=== PATIENT | male | born 1955 | race Caucasian/White ===

== ENCOUNTER 2018-04-11 17:10 | Inpatient (IN) | payer BC, MEDICARE, SELFPAY ==
[2018-04-11] VITALS (16 sets, daily range): BP systolic 92–145; BP diastolic 62–93; PULSE 98–129; RESP 12–39; TEMP 36–37.1; O2SAT 92–100; BMI 30.7; BMI 30.9
--- NOTE | 2018-04-11 17:27 | EKG12_ITS ---
Test Reason : Blood Pressure : / mmHG Vent. Rate : 098 BPM Atrial Rate : 098 BPM P-R Int : 176 ms QRS Dur : 124 ms QT Int : 398 ms P-R-T Axes : 082 008 145 degrees QTc Int : 508 ms Normal sinus rhythm Non-specific intra-ventricular conduction delay ST & T wave abnormality, consider inferolateral ischemia Abnormal ECG Confirmed by KAREN MALDONADO, TRENT ([id number]), deputy editor in chief ASHLEY AMES ([id number] on 04/14/2018 11:12:00 AM Referred By: YAHIR Confirmed By:TRENT JONES MD
--- NOTE | 2018-04-11 17:34 | ED.VISSUMM ---
- ER Visit Summary Date of Service: 04/11/18 Chief Complaint: Shortness of breath, gas History of Present Illness: The patient is a 62 M with abdominal problems for the past year. He describes abdominal distention, burping and passing gas a lot. Patient reports shortness of breath from not being able to take a deep breath due to abdominal distention. He states he awoke at 2 AM this morning with shortness of breath. states that she has seen him pass out a few times because he could not catch his breath. He had an EGD by Dr. Phillips in September. Family states he was told he was full of gas. He is scheduled for follow-up next week. He is currently taking Gas-X, Maalox, pantoprazole. Physical Examination: Vital signs are unremarkable. Patient sitting upright in bed no acute distress. Head neck examination normal. Heart is regular rate and rhythm. Lung sounds with expiratory wheezes. Abdomen is soft and nontender but is distended. He has hyperactive bowel sounds. Test Results: Acute abdominal series reveals a nonspecific ileus. EKG is sinus at 98 with an intraventricular conduction delay and mild lateral ST depression. This is a new change when compared to prior study from 2004. CBC was normal white count with hemoglobin 12.7. Chemistry studies grossly unremarkable. LFTs and lipase normal. Troponin was added secondary to the abnormal EKG and returns at 1.810. Emergency Department Course and Treatment: Patient received a DuoNeb treatment here. On repeat evaluation is resting comfortably. He denies complaints currently. Test results were discussed with him. He used to follow with Dr. Chaudhry, but has not seen him in several years. He does take a baby aspirin every morning. He will be given 3 additional baby aspirin now and I will speak with cardiology as well as hospitalist for admission. Treatment Plan: [] Disposition: Admit Impression: 1. NSTEMI 2. Ileus Addendum: When the hospitalist left the room after evaluating the patient he advised that the patient was now complaining of some chest pain and increasing shortness of breath. His oxygen saturations were 90-92% on room air. The monitor at the time I was speaking with the hospitalist was reading an O2 sat of 88% and patient was tachypneic and tachycardic. I went into the room to evaluate the patient and placed him on nasal cannula. We attempted to reposition the patient so he was sitting more upright. He continued to complain of significant shortness of breath and chest heaviness. Patient did have expiratory wheezing noted throughout. Repeat EKG was obtained which was grossly unchanged. Albuterol nebulized treatment was attempted. Patient continued to become more hypoxic and tachypneic. His coloration was poor and he became diaphoretic. Patient kept stating that he could not breathe and he could not do this anymore. We discussed briefly trying BiPAP, but ultimately chose to emergently intubate the patient to protect his airway. Patient was given etomidate and succinylcholine and intubated on first attempt. Oxygen saturations prior to intubation attempt was in the 70s. Oxygen saturations did improve with bagging and appropriate sedation medication was ordered. The patient had not yet received Lovenox and I was concerned about possible pulmonary embolism causing his symptoms. He was given a heparin bolus and drip. I spoke again with hospitalist, Dr. Mitchell, and Dr. Richard. Patient is transferred to the ICU. This note was generated with [employer] dictation software. It may contain incorrect words, spelling, and punctuation that were not noted in review of the chart prior to signing ED Disposition - Plan for ED Patient: Disposition: Home or Assisted Living Chief Complaint: Shortness of Breath
[2018-04-11] MEDS: Ipratropium/Albuterol Sulfate 3 ML AMPUL.NEB INHALATION (17:39)
--- NOTE | 2018-04-11 18:10 | RAD_ITS ---
STUDY: X-RAY - ACUTE ABDOMINAL SERIES REASON FOR EXAM: Male, 62 years old. Abdominal distention and pain TECHNIQUE: Single view of the chest. Supine, and upright view(s) of the abdomen were obtained. COMPARISON: None. FINDINGS: Chronic interstitial changes in the lower lobes worse on the right Heart is mildly enlarged. Normal mediastinum and henry. Normal visualized pulmonary arteries. Normal visualized aortic arch and descending thoracic aorta. Postop change status post median sternotomy and CABG. Diffuse ileus pattern is noted without definitive evidence for small bowel obstruction The soft tissue structures of the abdomen and pelvis are unremarkable. Lumbar spine demonstrates scoliosis and degenerative changes. RAD/Acute Abdomen Inc Chest IMPRESSION: Nonspecific ileus. Other findings as above Electronically Signed: Ranjit David MD at 18:22 EDT , Service support ,
[2018-04-11 18:14] LABS: Absolute Neutrophil Count 6.7 X10^3/uL (2.0-7.7); Basophil# 0.06 X10^3/uL; Basophil% 0.6 % (0-1); Eosinophil# 0.21 X10^3/uL; Eosinophils% 2.1 % (0-5); Hematocrit 41.1 % (40-54); Hemoglobin 12.7 g/dl (13.0-16.5); Lymphocyte % 23.2 % (19-41); Mean Corp Hgb Conc 30.9 g/gl (32-36); Mean Corpuscular Hgb 23.6 pg (27.0-32.0); Mean Corpuscular Volume 76.4 fL (80-94); Mean Platelet Vol. 8.7 fl (6.2-12.0); Monocyte# 0.69 X10^3/uL; Neutrophil # 6.65 X10^3/uL (2.7-7.7); Platelet Count 307 K/mm3 (150-450); RBC Distribution Width SD 47.2 fl (35.1-43.9); Red Blood Count 5.38 M/mm3 (4.6-6.2); White Blood Count 9.9 K/mm3 (4.4-11.0)
[2018-04-11 18:30] LABS: AST(SGOT) 20 U/L (15-37); Alanine Aminotransfer ALT/SGPT 16 U/L (16-61); Albumin, Serum 3.8 g/dL (3.2-5.0); Alkaline Phosphatase 127 U/L (45-117); Anion Gap 6 (5-15); BUN 8 mg/dL (7-18); BUN/Creat Ratio 7.6 RATIO (10-20); Bilirubin, Direct 0.24 mg/dL (0.00-0.30); Calcium,Total 9.2 mg/dL (8.5-10.1); Chloride 100 mmol/L (98-107); Creatinine, Serum 1.05 mg/dL (0.70-1.30); EST Glomerular Filtration Rate 76 mL/min (>60); Est Glom Filt Rate - Afr Amer 92 mL/min (>60); Estimated Creatinine Clearance 65.83 ml/min; Globulin 4.4 g/dL (2.2-4.2); Glucose 88 mg/dL (74-106); Lipase 113 U/L (73-393); Potassium 4.1 mmol/L (3.5-5.1); Protein, Total 8.2 g/dL (6.4-8.2); Sodium Level 135 mmol/L (136-145)
[2018-04-11 19:07] LABS: POSITIVE COUNT NO; POSITIVE DIFFERENTIAL NO; POSITIVE MORPHOLOGY YES
[2018-04-11 19:09] LABS: Differential Indicated SCAN CRITERIA MET
[2018-04-11 19:10] LABS: Hypochromasia 2+; Ovalocyte 1+; Platelet Estimate ADEQUATE (ADEQ)
[2018-04-11] MEDS: 0.9% Normal Saline 1,000 ML 150 ML IV ×2 (19:11→22:11)
--- NOTE | 2018-04-11 20:25 | ED.RN ---
RECEIVED CRITICAL VALUE OF TROPONIN 1.81, DR. SINCLAIR AWARE.
--- NOTE | 2018-04-11 21:03 | EKG12_ITS ---
Test Reason : CP Blood Pressure : / mmHG Vent. Rate : 121 BPM Atrial Rate : 121 BPM P-R Int : 156 ms QRS Dur : 132 ms QT Int : 322 ms P-R-T Axes : 069 -28 111 degrees QTc Int : 457 ms Sinus tachycardia Possible Left atrial enlargement Non-specific intra-ventricular conduction block T wave abnormality, consider lateral ischemia Abnormal ECG Confirmed by KAREN MALDONADO, TRENT ([id number]), commercial production editor ASHLEY AMES ([id number]) on 04/14/2018 11:12:30 AM Referred By: Confirmed By:TRENT JONES MD
--- NOTE | 2018-04-11 21:03 | PCM.HP.STD ---
Problem List (1) CAD (coronary artery disease) Status: Acute (2) Smoking greater than 40 pack years Status: Chronic (3) Chest pain Status: Acute (4) Abdominal distention Status: Acute (5) Shortness of breath Status: Acute History of Present Illness Date of Admission: 04/11/18 Chief Complaint: chest pain, shortness of breath The patient is a 62 year old male patient with a significant past medical history of coronary artery disease who has smoked since the age of 9, has a twin brother who of [place] and has had a previous myocardial infarction and four vessel CABG in 2004 presents to the ER with shortness of breath. He states he has had distention of his abdomen and difficulty eating more than one meal a day for the past year. Last evening this became worse and he has become progressively short of breath. He never followed up after his CABG for routine management and has continued smoking. He does not want pain medications but does admit that he has chest pain. He now agrees to Nitroglycerin but refuses opiates. He will be admitted to PCU for AM cardiology consult and heart catheterization. Past Medical History Past Medical History (Chronic Problems): Chronic Problems Smoking greater than 40 pack years (Chronic) Allergies No Known Allergies Allergy (Verified 04/11/18 17:13) Home Medications: Ambulatory Orders Medication Instructions Recorded Aspirin [Aspirin, Baby] 81 mg PO DAILY 04/11/18 Budesonide/Formoterol 160/4.5 2 puff INHALATION BID 04/11/18 [Symbicort 160/4.5 Mcg Inhaler (SP)] Omeprazole 40 mg PO DAILY 04/11/18 Simethicone [Gas Relief] 125 mg PO Q4H 04/11/18 Smoking Status: Current every day smoker - *Family History Sibling History Items: - - of [place] Review of Systems Constitutional: Denies: Chills, Fever, Weight Change HEENT: Denies: Head Aches, Sinus Congestion, Sinus Drainage Cardiovascular: Reports: Chest Pain. Denies: Palpitations Respiratory: Reports: Shortness of breath at rest. Denies: Cough, Sputum production Gastrointestinal: Reports: Abdominal Pain. Denies: Nausea, Vomiting Genitourinary: Denies: Dysuria Musculoskeletal: Denies: Joint Pain, Joint Tenderness Skin: Denies: Rash, Wounds Neurological: Denies: Numbness, Tingling, Focal weakness Psychiatric: Denies: Anxiety, Depression, Homicidal Ideations, Suicidal Ideations Hematologic/ Lymphatic: Denies: Easy Bruising, Easy Bleeding VTE Information - Inpt Only VTE Present on Admission: No VTE Mechan Device Prophylaxis: None VTE Pharm Prophylaxis ordered?: Yes Patient Problems: Active and Suspected Problems CAD (coronary artery disease) (Acute) Chest pain (Acute) Abdominal distention (Acute) Shortness of breath (Acute) - Physical Exam General: Alert, Oriented x3, Cooperative HEENT: Atraumatic, Normocephalic Neck: Supple, Negative Carotid Bruits Lungs: Clear to auscultation, Normal air movement Cardiovascular: Normal S1, Normal S2, No murmurs, Tachycardic Abdomen: Hypoactive Bowel Sounds, Distended, Tender Extremities: No edema Skin: No rashes, No breakdown Musculoskeletal: No Tenderness to Palpation of Joints or Extremities Neurological: Neuro grossly intact Psych/Mental Status: Normal Affect, Appropriate Vital Signs Temp Pulse Resp BP Pulse Ox 96.8 F L 99 28 H 121/89 H 93 04/11/18 17:11 04/11/18 20:39 04/11/18 20:39 04/11/18 20:39 04/11/18 20:39 Oxygen Delivery Method Room Air Weight: 190 lb 11.198 oz Body Mass Index (BMI) 30.7 Laboratory Tests Past 24 Hrs 04/11/18 04/11/18 04/11/18 17:55 17:55 17:55 WBC 9.9 RBC 5.38 Hgb 12.7 L Hct 41.1 MCV 76.4 L MCH 23.6 L MCHC 30.9 L RDW 17.0 H RDW Differential 47.2 H Plt Count 307 MPV 8.7 Immature Gran % (Auto) 0.100 Neut % (Auto) 67.0 Lymph % (Auto) 23.2 [place] % (Auto) 7.0 Eos % (Auto) 2.1 Baso % (Auto) 0.6 Absolute Neuts (auto) 6.7 Absolute Lymphs (auto) 2.30 Total Counted Not Reportable Platelet Estimate ADEQUATE Hypochromasia 2+ Ovalocytes 1+ Sodium 135 L Potassium 4.1 Chloride 100 Carbon Dioxide 29.0 Anion Gap 6 BUN 8 Creatinine 1.05 Estim Creat Clear Calc 65.83 Est GFR (MDRD) Af Amer 92 Est GFR (MDRD) Non-Af 76 BUN/Creatinine Ratio 7.6 L Glucose 88 Calcium 9.2 Total Bilirubin 0.80 Direct Bilirubin 0.24 AST 20 ALT 16 Alkaline Phosphatase 127 H Troponin I 1.810 H* Total Protein 8.2 Albumin 3.8 Globulin 4.4 H Lipase 113 Assessment/Plan All Active Problems CAD (coronary artery disease) (Acute) Chest pain (Acute) Abdominal distention (Acute) Shortness of breath (Acute) Plan - admit to PCU - consult Dr. Richard - NPO pending heart cath protocol in am - he refused nicoderm patch , smoking cessation encouraged - morphine , oxygen, nitro and aspirin per routine - Lovenox and plavix ordered as well , will get 75 plavix in am - cycle cardiac markers - IV normal saline at 100cc/hour Code Visit Inpatient E&M: 16688 Init Hosp L3
--- NOTE | 2018-04-11 21:08 | HP.PCM_ITS ---
Problem List (1) CAD (coronary artery disease) Status: Acute (2) Smoking greater than 40 pack years Status: Chronic (3) Chest pain Status: Acute (4) Abdominal distention Status: Acute (5) Shortness of breath Status: Acute History of Present Illness Date of Admission: 04/11/18 Chief Complaint: chest pain, shortness of breath The patient is a 62 year old male patient with a significant past medical history of coronary artery disease who has smoked since the age of 9, has a twin brother who of [place] and has had a previous myocardial infarction and four vessel CABG in 2004 presents to the ER with shortness of breath. He states he has had distention of his abdomen and difficulty eating more than one meal a day for the past year. Last evening this became worse and he has become progressively short of breath. He never followed up after his CABG for routine management and has continued smoking. He does not want pain medications but does admit that he has chest pain. He now agrees to Nitroglycerin but refuses opiates. He will be admitted to PCU for AM cardiology consult and heart catheterization. Past Medical History Past Medical History (Chronic Problems): Chronic Problems Smoking greater than 40 pack years (Chronic) Allergies No Known Allergies Allergy (Verified 04/11/18 17:13) Home Medications: Ambulatory Orders Medication Instructions Recorded Aspirin [Aspirin, Baby] 81 mg PO DAILY 04/11/18 Budesonide/Formoterol 160/4.5 2 puff INHALATION BID 04/11/18 [Symbicort 160/4.5 Mcg Inhaler (SP)] Omeprazole 40 mg PO DAILY 04/11/18 Simethicone [Gas Relief] 125 mg PO Q4H 04/11/18 Smoking Status: Current every day smoker - *Family History Sibling History Items: - - of [place] Review of Systems Constitutional: Denies: Chills, Fever, Weight Change HEENT: Denies: Head Aches, Sinus Congestion, Sinus Drainage Cardiovascular: Reports: Chest Pain. Denies: Palpitations Respiratory: Reports: Shortness of breath at rest. Denies: Cough, Sputum p roduction Gastrointestinal: Reports: Abdominal Pain. Denies: Nausea, Vomiting Genitourinary: Denies: Dysuria Musculoskeletal: Denies: Joint Pain, Joint Tenderness Skin: Denies: Rash, Wounds Neurological: Denies: Numbness, Tingling, Focal weakness Psychiatric: Denies: Anxiety, Depression, Homicidal Ideations, Suicidal Ideations Hematologic/ Lymphatic: Denies: Easy Bruising, Easy Bleeding VTE Information - Inpt Only VTE Present on Admission: No VTE Mechan Device Prophylaxis: None VTE Pharm Prophylaxis ordered?: Yes Patient Problems: Active and Suspected Problems CAD (coronary artery disease) (Acute) Chest pain (Acute) Abdominal distention (Acute) Shortness of breath (Acute) - Physical Exam General: Alert, Oriented x3, Cooperative HEENT: Atraumatic, Normocephalic Neck: Supple, Negative Carotid Bruits Lungs: Clear to auscultation, Normal air movement Cardiovascular: Normal S1, Normal S2, No murmurs, Tachycardic Abdomen: Hypoactive Bowel Sounds, Distended, Tender Extremities: No edema Skin: No rashes, No breakdown Musculoskeletal: No Tenderness to Palpation of Joints or Extremities Neurological: Neuro grossly intact Psych/Mental Status: Normal Affect, Appropriate Vital Signs Temp Pulse Resp BP Pulse Ox 96.8 F L 99 28 H 121/89 H 93 04/11/18 17:11 04/11/18 20:39 04/11/18 20:39 04/11/18 20:39 04/11/18 20:39 Oxygen Delivery Method Room Air Weight: 190 lb 11.198 oz Body Mass Index (BMI) 30.7 Laboratory Tests Past 24 Hrs 04/11/18 04/11/18 04/11/18 17:55 17:55 17:55 WBC 9.9 RBC 5.38 Hgb 12.7 L Hct 41.1 MCV 76.4 L MCH 23.6 L MCHC 30.9 L RDW 17.0 H RDW Differential 47.2 H Plt Count 307 MPV 8.7 Immature Gran % (Auto) 0.100 Neut % (Auto) 67.0 Lymph % (Auto) 23.2 [place] % (Auto) 7.0 Eos % (Auto) 2.1 Baso % (Auto) 0.6 Absolute Neuts (auto) 6.7 Absolute Lymphs (auto) 2.30 Total Counted Not Reportable Platelet Estimate ADEQUATE Hypochromasia 2+ Ovalocytes 1+ Sodium 135 L Potassium 4.1 Chloride 100 Carbon Dioxide 29.0 Anion Gap 6 BUN 8 Creatinine 1.05 Estim Creat Clear Calc 65.83 Est GFR (MDRD) Af Amer 92 Est GFR (MDRD) Non-Af 76 BUN/Creatinine Ratio 7.6 L Glucose 88 Calcium 9.2 Total Bilirubin 0.80 Direct Bilirubin 0.24 AST 20 ALT 16 Alkaline Phosphatase 127 H Troponin I 1.810 H* Total Protein 8.2 Albumin 3.8 Globulin 4.4 H Lipase 113 Assessment/Plan All Active Problems CAD (coronary artery disease) (Acute) Chest pain (Acute) Abdominal distention (Acute) Shortness of breath (Acute) Plan - admit to PCU - consult Dr. Richard - NPO pending heart cath protocol in am - he refused nicoderm patch , smoking cessation encouraged - morphine , oxygen, nitro and aspirin per routine - Lovenox and plavix ordered as well , will get 75 plavix in am - cycle cardiac markers - IV normal saline at 100cc/hour Code Visit Inpatient E&M: 87074 Init Hosp L3
[2018-04-11] MEDS: Etomidate 20 MG/10 ML Vial IV (21:21)
[2018-04-11] MEDS: Succinylcholine Chloride 200 MG/10 ML Vial 100 MG IV (21:22)
--- NOTE | 2018-04-11 21:23 | ED.RN ---
POSITIVE COLOR CHANGE WITH INTUBATION
--- NOTE | 2018-04-11 21:24 | ED.RN ---
CALLED FOR XRAY
[2018-04-11] MEDS: Propofol 10MG/Ml 1,000 MG/100 ML Bottle 2.595 MG CONT INF (21:35)
[2018-04-11] MEDS: Propofol 200 MG/20 ML Vial 80 MG IV BOLUS (21:35)
--- NOTE | 2018-04-11 21:44 | RAD_ITS ---
STUDY: X-RAY CHEST REASON FOR EXAM: Male, 62 years old. ETT placement and OG tube placement TECHNIQUE: AP portable COMPARISON: None. FINDINGS: There is diffuse bilateral perihilar interstitial thickening with bronchovascular cuffing possibly representing coexisting pulmonary interstitial edema.. There is no demonstrated pleural abnormality. The heart is enlarged. Normal mediastinum and henry. Normal visualized pulmonary arteries. Normal visualized aortic arch and descending thoracic aorta. Post surgical changes status post median sternotomy and CABG Normal visualized thoracic spine. Normal visualized ribs, clavicles, and shoulders. Endotracheal tube is present with tip approximately 6 cm proximal to bill and orogastric tube not visualized. There is no demonstrated abnormality of the visualized soft tissue structures of the upper abdomen. RAD/Chest 1 View (Portable) IMPRESSION: Findings which may be consistent with COPD and coexisting mild congestive failure status post intubation. Electronically Signed: Ranjit David MD at 22:55 EDT , Service support ,
--- NOTE | 2018-04-11 21:50 | RAD_ITS ---
STUDY: X-RAY CHEST REASON FOR EXAM: Male, 62 years old. Endotracheal and orogastric tube placement TECHNIQUE: AP portable COMPARISON: April 11, 2018 9:39 PM FINDINGS: Comparison with earlier study again demonstrates findings which may be consistent with COPD and superimposed pulmonary interstitial edema. Endotracheal tube is again demonstrated with tip terminating approximately 6 cm proximal to bill. Nasogastric tube has been inserted with tip in the stomach. RAD/Chest 1 View (Portable) IMPRESSION: Findings which may be consistent with mild pulmonary interstitial edema status post endotracheal and orogastric tube placement Electronically Signed: Ranjit David MD at 22:55 EDT , Service support ,
[2018-04-11] MEDS: Heparin Injection (Vial) 5,000 UNIT/ML VIAL 6000 UNIT IV (22:09)
[2018-04-11 22:15] LABS: International Normalized Ratio 1.2; Prothrombin Time (Protime)PT. 15.1 SECONDS (11.7-14.9)
[2018-04-11 22:16] LABS: Partial Thromboplast Time 29.1 Seconds (24.1-36.2)
[2018-04-11] MEDS: fentaNYL 100 MCG/2 ML Ampul IV (22:20)
[2018-04-11] MEDS: fentaNYL drip 100 ML 5 MCG IV (22:37)
[2018-04-11] MEDS: Chlorhexidine 15 ML PO (23:00)
[2018-04-11 23:46] LABS: Base Excess -6 mmol/L (-2 to +2); Bicarbonate 20.4 mmol/L (22-26); Blood Gas Specimen Type ART; FI02 60; Mode A-C; O2 Delivery Device Vent; PEEP 5; PO2 56 mmHG (75-100); RR 26; SITE R Brachial; SO2 86 % (95-99); Total Carbon Dioxide 22 mmol/L; Vt 500; pCO2 39.6 mmHg (35-45); pH 7.32 (7.35-7.45)
[2018-04-12] VITALS (51 sets, daily range): BP systolic 72–112; BP diastolic 56–81; PULSE 77–126; RESP 12–27; TEMP 36.8–38.7; O2SAT 88–98
[2018-04-12 00:24] LABS: CPK Total, Creatine Kinase 119 U/L (39-308); Triglycerides 78 mg/dL
[2018-04-12] MEDS: 0.9% Normal Saline 1,000 ML 100 ML IV ×2 (01:19→08:30)
--- NOTE | 2018-04-12 01:35 | EKG12_ITS ---
Test Reason : AM EKG Blood Pressure : / mmHG Vent. Rate : 077 BPM Atrial Rate : 077 BPM P-R Int : 192 ms QRS Dur : 128 ms QT Int : 444 ms P-R-T Axes : 069 -20 006 degrees QTc Int : 502 ms Normal sinus rhythm Non-specific intra-ventricular conduction block Abnormal ECG When compared with ECG of 12-APR-2018 06:29, MANUAL COMPARISON REQUIRED, DATA IS UNCONFIRMED Confirmed by WENDY MALDONADO, STEFAN ([id number]), scientific editor ADAN GUZMAN ([id number]) on 04/18/2018 11:03:48 AM Referred By: RUEL Confirmed By:STEFAN NGUYEN MD
[2018-04-12] MEDS: Propofol 10MG/Ml 1,000 MG/100 ML Bottle 2.595 MG CONT INF ×2 (02:20→16:06)
[2018-04-12 02:41] LABS: Base Excess 0 mmol/L (-2 to +2); Bicarbonate 25.2 mmol/L (22-26); Blood Gas Specimen Type ART; FI02 50; Mode A-C; O2 Delivery Device Vent; PEEP 5; PO2 75 mmHG (75-100); RR 12; SITE R Brachial; SO2 94 % (95-99); Total Carbon Dioxide 27 mmol/L; Vt 500; pH 7.35 (7.35-7.45)
[2018-04-12 04:34] LABS: Hematocrit 37.9 % (40-54); Hemoglobin 11.7 g/dl (13.0-16.5); Mean Corp Hgb Conc 30.9 g/gl (32-36); Mean Corpuscular Hgb 23.7 pg (27.0-32.0); Mean Corpuscular Volume 76.9 fL (80-94); Platelet Count 296 K/mm3 (150-450); RBC Distribution Width SD 47.5 fl (35.1-43.9); Red Blood Count 4.93 M/mm3 (4.6-6.2); White Blood Count 11.1 K/mm3 (4.4-11.0)
[2018-04-12 04:38] LABS: Scan Indicated on CBC? Y/N NO
[2018-04-12 04:47] LABS: ALB/GLOB Ratio 0.8 RATIO (0.9-2.4); AST(SGOT) 99 U/L (15-37); Alanine Aminotransfer ALT/SGPT 23 U/L (16-61); Albumin, Serum 3.2 g/dL (3.2-5.0); Alkaline Phosphatase 110 U/L (45-117); Anion Gap 8 (5-15); BUN 11 mg/dL (7-18); BUN/Creat Ratio 11.4 RATIO (10-20); Calcium,Total 8.5 mg/dL (8.5-10.1); Chloride 105 mmol/L (98-107); Cholesterol 152 mg/dL (200); Creatinine, Serum 0.96 mg/dL (0.70-1.30); EST Glomerular Filtration Rate 84 mL/min (>60); Est Glom Filt Rate - Afr Amer 102 mL/min (>60); Globulin 3.9 g/dL (2.2-4.2); Glucose 125 mg/dL (74-106); High Density Lipoprotein 27 mg/dL; Potassium 4.3 mmol/L (3.5-5.1); Protein, Total 7.1 g/dL (6.4-8.2); Sodium Level 138 mmol/L (136-145); Triglycerides 95 mg/dL; Very Low Density Lipoprotein 19 mg/dL (5-40)
[2018-04-12 04:50] LABS: Partial Thromboplast Time 101.9 Seconds (24.1-36.2)
[2018-04-12] MEDS: CHLORHEXIDINE GLUC 2% CLOTH 1 EACH TOWELETTE TOPICAL ×2 (06:07→23:35)
--- NOTE | 2018-04-12 06:29 | EKG12_ITS ---
Test Reason : AM Blood Pressure : / mmHG Vent. Rate : 093 BPM Atrial Rate : 093 BPM P-R Int : 184 ms QRS Dur : 126 ms QT Int : 414 ms P-R-T Axes : 080 -08 141 degrees QTc Int : 514 ms Sinus rhythm with frequent Premature ventricular complexes Non-specific intra-ventricular conduction block Abnormal ECG When compared with ECG of 11-APR-2018 23:47, MANUAL COMPARISON REQUIRED, DATA IS UNCONFIRMED Confirmed by WENDY MALDONADO, STEFAN ([id number]), science editor ADAN GUZMAN ([id number]) on 04/18/2018 11:03:29 AM Referred By: SANTIAGO Confirmed By:STEFAN NGUYEN MD
--- NOTE | 2018-04-12 07:23 | PCM.CONS.C ---
Reason for Consult Date of Consultation: 04/12/18 Reason for Consultation: Chest pain and shortness of breath History of Present Illness: The patient is a 62 year old Mt with a significant past medical history of coronary artery disease who has smoked since the age of 9, has a twin brother who of [place] and has had a previous myocardial infarction and four vessel CABG in 2004. He was previously being seen by Dr. Olman Chaudhry of the [facility]. He presented to the ER with shortness of breath. He states he has had distention of his abdomen and difficulty eating more than one meal a day for the past year. Last evening this became worse and he has become progressively short of breath. He never followed up after his CABG for routine management and has continued smoking. In the ER he was evaluated and was noted to have an EKG which demonstrated an intraventricular conduction delay and mildly abnormal troponin. He appeared to get more progressively short of breath in the emergency room eventually culminating in him being intubated and transferred to the intensive care unit. He denied any chest pain per se prior to the above. Past Medical History Allergies/Adverse Reactions: Allergies No Known Allergies Allergy (Verified 04/11/18 17:13) Home Medications: Ambulatory Orders Medication Instructions Recorded Aspirin [Aspirin, Baby] 81 mg PO DAILY 04/11/18 Budesonide/Formoterol 160/4.5 2 puff INHALATION BID 04/11/18 [Symbicort 160/4.5 Mcg Inhaler (SP)] Omeprazole 40 mg PO DAILY 04/11/18 Simethicone [Gas Relief] 125 mg PO Q4H 04/11/18 Past Medical History (Chronic Problems): Chronic Problems Smoking greater than 40 pack years (Chronic) Surgical History: coronary bypass surgery - *Family History Sibling History Items: - - of [place] Smoking Status: Current every day smoker Alcohol: None Drugs: None Review of Systems - Review of Systems General: Reports: Fatigue. Denies: Fever, Night Sweats Cardiovascular: Reports: Shortness of Breath, Shortness of Breath at Rest, Shortness of Breath with Exertion - The limited review of systems was obtained via the chart and relatives.. Denies: Orthopnea, PND, Peripheral Edema, Palpitations, Lightheadedness, Dizziness, Near Syncope, Syncope Respiratory: Denies: Cough, Sputum Production, Hemoptysis Gastrointestinal: Denies: Hematemesis, Hematochezia, Melena Genitourinary: Denies: Dysuria, Hematuria Skin: Denies: Rash Subjectve: Intubated middle-aged man in no distress Objective: Vital Signs Temp Pulse Resp BP Pulse Ox 98.5 F 93 18 112/81 H 95 04/12/18 06:00 04/12/18 06:00 04/12/18 06:00 04/12/18 06:00 04/12/18 06:00 Oxygen Delivery Method Mechanical Ventilator Weight: 192 lb 3.889 oz Body Mass Index (BMI) 30.9 Intake and Output for Last 24 Hours 04/10/18 04/11/18 04/12/18 23:59 23:59 23:59 Intake Total 511.4 / 511.4 Output Total 150 / 150 Balance 361.4 / 361.4 General: Ill Appearing HEENT: PERRL, EOMI, Sclera Non Icteric Neck: Supple, Good ROM, No Lymph Node Enlargement Lungs: Clear to auscultation Cardiovascular: Regular Rhythm, Normal S1, Normal S2, No Murmurs, No Rubs, No Gallops Vascular: No Carotid Bruits, Normal Femoral Pulses, Normal Radial Pulses, Normal Dorsalis Pedal Pulse, Normal Posterior Tibial Pulses Abdomen: Bowel Sounds Present, Soft, Non Tender, No HSM, No Organomegaly Extremities: No Cyanosis, No Clubbing, No edema Neurological: No Focal Motor or Sensory Deficit 04/11/18 17:55: WBC 9.9, RBC 5.38, Hgb 12.7 L, Hct 41.1, MCV 76.4 L, MCH 23.6 L, MCHC 30.9 L, RDW 17.0 H, RDW Differential 47.2 H, Plt Count 307, MPV 8.7, Immature Gran % (Auto) 0.100, Neut % (Auto) 67.0, Lymph % (Auto) 23.2, [place] % (Auto) 7.0, Eos % (Auto) 2.1, Baso % (Auto) 0.6, Absolute Neuts (auto) 6.7, Total Counted Not Reportable 04/11/18 17:55: Sodium 135 L, Potassium 4.1, Chloride 100, Carbon Dioxide 29.0, Anion Gap 6, BUN 8, Creatinine 1.05, Est GFR (MDRD) Af Amer 92, Est GFR (MDRD) Non-Af 76, BUN/Creatinine Ratio 7.6 L, Glucose 88, Calcium 9.2, Total Bilirubin 0.80, Direct Bilirubin 0.24 04/11/18 17:55: Troponin I 1.810 H* 04/11/18 21:50: PT 15.1 H, INR 1.2, APTT 29.1 04/11/18 23:35: pH 7.32 L, Bicarbonate Actual 20.4 L, POC Total CO2 22, Base Excess -6 L, O2 Saturation 86 L, ABG pCO2 39.6, ABG pO2 56 L, Jeremías Test NA 04/11/18 23:50: Triglycerides 78 04/11/18 23:50: Troponin I 1.610 H* 04/12/18 02:34: pH 7.35, Bicarbonate Actual 25.2, POC Total CO2 27, Base Excess 0, O2 Saturation 94 L, ABG pCO2 46.0 H, ABG pO2 75, Jeremías Test NA 04/12/18 02:55: Troponin I 13.400 H* 04/12/18 04:10: WBC 11.1 H, RBC 4.93, Hgb 11.7 L, Hct 37.9 L, MCV 76.9 L, MCH 23.7 L, MCHC 30.9 L, RDW 17.0 H, RDW Differential 47.5 H, Plt Count 296, MPV 9.0 04/12/18 04:10: Sodium 138, Potassium 4.3, Chloride 105, Carbon Dioxide 25.0, Anion Gap 8, BUN 11, Creatinine 0.96, Est GFR (MDRD) Af Amer 102, Est GFR (MDRD) Non-Af 84, BUN/Creatinine Ratio 11.4, Glucose 125 H, Calcium 8.5, Total Bilirubin 0.80, Triglycerides 95, Cholesterol 152, LDL Cholesterol 106, VLDL Cholesterol 19, HDL Cholesterol 27 L 04/12/18 04:10: APTT 101.9 H* 04/12/18 06:20: Troponin I 39.900 H* Rhythm: EKG: Normal sinus rhythm with a rate of 93 bpm and an intraventricular conduction delay Assessment/Plan 1. Non-ST elevation myocardial infarction He did appear to have presented with a non-ST elevation myocardial infarction with an atypical presentation. He did get progressively short of breath but with his current enzyme pattern the plan would be as follows: Aspirin 81 mg daily Clopidogrel Beta-blockers Cardiogram to assess his left ventricular function Consideration for a cardiac catheterization to assess and define his coronary anatomy. Statins as appropriate 2. Congestive heart failure He presented with shortness of breath and went into respiratory distress which was likely congestive heart failure. Will recommend obtaining an echocardiogram to assess his left ventricular function and guide therapy Depending on the findings further recommendations will be made. Thank you for allowing me to participate in the care of your patient. Please don't hesitate to call if any issues arise
--- NOTE | 2018-04-12 07:28 | CON.PCM_ITS ---
Reason for Consult Date of Consultation: 04/12/18 Reason for Consultation: Chest pain and shortness of breath History of Present Illness: The patient is a 62 year old Mt with a significant past medical history of coronary artery disease who has smoked since the age of 9, has a twin brother who of [place] and has had a previous myocardial infarction and four vessel CABG in 2004. He was previously being seen by Dr. Olman Chaudhry of the [facility]. He presented to the ER with shortness of breath. He states he has had distention of his abdomen and difficulty eating more than one meal a day for the past year. Last evening this became worse and he has become progressively short of breath. He never followed up after his CABG for routine management and has continued smoking. In the ER he was evaluated and was noted to have an EKG which demonstrated an intraventricular conduction delay and mildly abnormal troponin. He appeared to get more progressively short of breath in the emergency room eventually culminating in him being intubated and transferred to the intensive care unit. He denied any chest pain per se prior to the above. Past Medical History Allergies/Adverse Reactions: Allergies No Known Allergies Allergy (Verified 04/11/18 17:13) Home Medications: Ambulatory Orders Medication Instructions Recorded Aspirin [Aspirin, Baby] 81 mg PO DAILY 04/11/18 Budesonide/Formoterol 160/4.5 2 puff INHALATION BID 04/11/18 [Symbicort 160/4.5 Mcg Inhaler (SP)] Omeprazole 40 mg PO DAILY 04/11/18 Simethicone [Gas Relief] 125 mg PO Q4H 04/11/18 Past Medical History (Chronic Problems): Chronic Problems Smoking greater than 40 pack years (Chronic) Surgical History: coronary bypass surgery - *Family History Sibling History Items: - - of [place] Smoking Status: Current every day smoker Alcohol: None Drugs: None Review of Systems - Review of Systems General: Reports: Fatigue. Denies: Fever, Night Sweats Cardiovascular: Reports: Shortness of Breath, Shortness of Breath at Rest, Shortness of Breath with Exertion - The limited review of systems was obtained via the chart and relatives.. Denies: Orthopnea, PND, Peripheral Edema, Palpitations, Lightheadedness, Dizziness, Near Syncope, Syncope Respiratory: Denies: Cough, Sputum Production, Hemoptysis Gastrointestinal: Denies: Hematemesis, Hematochezia, Melena Genitourinary: Denies: Dysuria, Hematuria Skin: Denies: Rash Subjectve: Intubated middle-aged man in no distress Objective: Vital Signs Temp Pulse Resp BP Pulse Ox 98.5 F 93 18 112/81 H 95 04/12/18 06:00 04/12/18 06:00 04/12/18 06:00 04/12/18 06:00 04/12/18 06:00 Oxygen Delivery Method Mechanical Ventilator Weight: 192 lb 3.889 oz Body Mass Index (BMI) 30.9 Intake and Output for Last 24 Hours 04/10/18 04/11/18 04/12/18 23:59 23:59 23:59 Intake Total 511.4 / 511.4 Output Total 150 / 150 Balance 361.4 / 361.4 General: Ill Appearing HEENT: PERRL, EOMI, Sclera Non Icteric Neck: Supple, Good ROM, No Lymph Node Enlargement Lungs: Clear to auscultation Cardiovascular: Regular Rhythm, Normal S1, Normal S2, No Murmurs, No Rubs, No Gallops Vascular: No Carotid Bruits, Normal Femoral Pulses, Normal Radial Pulses, Normal Dorsalis Pedal Pulse, Normal Posterior Tibial Pulses Abdomen: Bowel Sounds Present, Soft, Non Tender, No HSM, No Organomegaly Extremities: No Cyanosis, No Clubbing, No edema Neurological: No Focal Motor or Sensory Deficit 04/11/18 17:55: WBC 9.9, RBC 5.38, Hgb 12.7 L, Hct 41.1, MCV 76.4 L, MCH 23.6 L, MCHC 30.9 L, RDW 17.0 H, RDW Differential 47.2 H, Plt Count 307, MPV 8.7, Immature Gran % (Auto) 0.100, Neut % (Auto) 67.0, Lymph % (Auto) 23.2, [place] % (Auto) 7.0, Eos % (Auto) 2.1, Baso % (Auto) 0.6, Absolute Neuts (auto) 6.7, Total Counted Not Reportable 04/11/18 17:55: Sodium 135 L, Potassium 4.1, Chloride 100, Carbon Dioxide 29.0, Anion Gap 6, BUN 8, Creatinine 1.05, Est GFR (MDRD) Af Amer 92, Est GFR (MDRD) Non-Af 76, BUN/Creatinine Ratio 7.6 L, Glucose 88, Calcium 9.2, Total Bilirubin 0.80, Direct Bilirubin 0.24 04/11/18 17:55: Troponin I 1.810 H* 04/11/18 21:50: PT 15.1 H, INR 1.2, APTT 29.1 04/11/18 23:35: pH 7.32 L, Bicarbonate Actual 20.4 L, POC Total CO2 22, Base Excess -6 L, O2 Saturation 86 L, ABG pCO2 39.6, ABG pO2 56 L, Jeremías Test NA 04/11/18 23:50: Triglycerides 78 04/11/18 23:50: Troponin I 1.610 H* 04/12/18 02:34: pH 7.35, Bicarbonate Actual 25.2, POC Total CO2 27, Base Excess 0, O2 Saturation 94 L, ABG pCO2 46.0 H, ABG pO2 75, Jeremías Test NA 04/12/18 02:55: Troponin I 13.400 H* 04/12/18 04:10: WBC 11.1 H, RBC 4.93, Hgb 11.7 L, Hct 37.9 L, MCV 76.9 L, MCH 23.7 L, MCHC 30.9 L, RDW 17.0 H, RDW Differential 47.5 H, Plt Count 296, MPV 9.0 04/12/18 04:10: Sodium 138, Potassium 4.3, Chloride 105, Carbon Dioxide 25.0, Anion Gap 8, BUN 11, Creatinine 0.96, Est GFR (MDRD) Af Amer 102, Est GFR (MDRD) Non-Af 84, BUN/Creatinine Ratio 11.4, Glucose 125 H, Calcium 8.5, Total Bilirubin 0.80, Triglycerides 95, Cholesterol 152, LDL Cholesterol 106, VLDL Cholesterol 19, HDL Cholesterol 27 L 04/12/18 04:10: APTT 101.9 H* 04/12/18 06:20: Troponin I 39.900 H* Rhythm: EKG: Normal sinus rhythm with a rate of 93 bpm and an intraventricular conduction delay Assessment/Plan 1. Non-ST elevation myocardial infarction * He did appear to have presented with a non-ST elevation myocardial infarction with an atypical presentation. He did get progressively short of breath but with his current enzyme pattern the plan would be as follows: * Aspirin 81 mg daily * Clopidogrel * Beta-blockers * Cardiogram to assess his left ventricular function * Consideration for a cardiac catheterization to assess and define his coronary anatomy. * Statins as appropriate 2. Congestive heart failure * He presented with shortness of breath and went into respiratory distress which was likely congestive heart failure. * Will recommend obtaining an echocardiogram to assess his left ventricular function and guide therapy * * Depending on the findings further recommendations will be made. * Thank you for allowing me to participate in the care of your patient. Please don't hesitate to call if any issues arise
--- NOTE | 2018-04-12 07:29 | ECHOCS_ITS ---
Reason For Study: S/P CABG Procedure This was a 2D Doppler, Color Flow transthoracic echocardiogram. The study was technically difficult. PT ON VENT. Exam performed portable in ICU/CCU. DR. Richard paged with prelim ejection fraction @ 9:45 am. Left Ventricle Moderately dilated left ventricle. The estimated ejection fraction is 15 %. Severe segmental systolic dysfunction (see wall motion). Stage 3 diastolic dysfunction. [place] : Akinetic. Mid- anteroseptal : Normal. Mid-Anterior : Akinetic. Lateral [place] : Akinetic. Mid-Posterior: Akinetic. The rest of the wall segments are hypokinetic. Right Ventricle Normal RV size. Normal systolic function. Atria The left atrium is mildly enlarged. Normal right atrium. Mitral Valve Mild diffuse mitral valve thickening. Moderate (2+) mitral valve insufficiency. Tricuspid Valve Normal tricuspid valve. Mild (1+) tricuspid valve insufficiency. Pulmonary artery systolic pressure is 22 mmHg. Aortic Valve Normal aortic valve. Trisinus/trileaflet aortic valve. Pulmonic Valve Normal pulmonic valve. Great Vessels Normal aortic root. The pulmonary artery is normal size. Normal inferior vena cava. Pericardium/Pleural No pericardial effusion. Medication Diluted definity 3.0ml given slow IV push to enhance endocardial definition. MMode/2D Measurements & Calculations LVIDd: 6.4 cm IVSd: 1.1 cm Ao root diam: 3.0 cm LVIDs: 6.1 cm LVPWd: 1.2 cm LA dimension: 5.5 cm RVDd: 3.0 cm FS: 4.4 % LAV(MOD-bp): 88.6 ml LA A4 area: 24.5 cm2 RA A4 area: 11.2 cm2 LAV(MOD-bp) Indexed: 45.1 ml/m2 LAV(MOD-sp2): 88.5 ml LAV(MOD-sp4): 88.7 ml Doppler Measurements & Calculations MV E max rusty: 91.4 cm/sec Lat Peak E' Rusty: 2.7 cm/sec Med Peak E' Rusty: 5.7 cm/sec MV A max rusty: 36.5 cm/sec E/E' lat: 33.7 E/E' med: 16.1 MV E/A: 2.5 Ao V2 max: 79.7 cm/sec LV V1 max: 57.2 cm/sec MR max rusty: 359.3 cm/sec Ao max P.5 mmHg LV V1 max P.3 mmHg MR max P.7 mmHg PA V2 max: 44.6 cm/sec TR max rusty: 216.6 cm/sec TR max P.8 mmHg Interpretation Summary Moderately dilated left ventricle. The estimated ejection fraction is 15 %. Severe segmental systolic dysfunction (see wall motion). Stage 3 diastolic dysfunction. Compared to the previous there is a significant change Ordering Physician: Jitendra Richard Referring Physician: Willi Juares Performed By: Jill Mae, CB, RVT
--- NOTE | 2018-04-12 07:35 | PCM.PN.HOSP ---
Patient Problems: Active and Suspected Problems CAD (coronary artery disease) (Acute) Chest pain (Acute) Abdominal distention (Acute) Shortness of breath (Acute) Subjective: Patient is intubated on ventilator. Map more than 65. No fever. Patient on propofol and fentanyl drip. Vitals/I&O's: Vital Signs Temp Pulse Resp BP Pulse Ox 98.5 F 93 18 112/81 H 95 04/12/18 06:00 04/12/18 06:00 04/12/18 06:00 04/12/18 06:00 04/12/18 06:00 Oxygen Delivery Method Mechanical Ventilator Weight: 192 lb 3.889 oz Body Mass Index (BMI) 30.9 Intake and Output for Last 24 Hours 04/10/18 04/11/18 04/12/18 23:59 23:59 23:59 Intake Total 511.4 / 511.4 Output Total 150 / 150 Balance 361.4 / 361.4 General: - - Sedated HEENT: Atraumatic, PERRLA, EOMI, Normocephalic Oral: - - The ET and OG tube Lungs: - - On vent support Cardiovascular: Regular rate, Regular Rhythm, Normal S1, Normal S2 Abdomen: Bowel Sounds Present, Soft, Non Tender, Non-Distended Extremities: Edema Musculoskeletal: No Tenderness to Palpation of Joints or Extremities, Arthritic Changes Neurological: - - Sedated Current Medications Aspirin (Ecotrin) 325 mg PO DAILY@0800 [facility] Chlorhexidine Gluconate () 15 ml PO BID [facility] Last Admin: 04/11/18 23:00 Dose: 15 ml Chlorhexidine Gluconate () 1 each TOPICAL DAILY [facility] Last Admin: 04/12/18 06:07 Dose: 1 each Clopidogrel Bisulfate (Plavix) 75 mg PO DAILY [facility] Heparin Sodium (Porcine) (Heparin Na) 0 unit IV UD PRN; Protocol Heparin Sodium/Dextrose () 25,000 units in 250 mls @ 12 mls/hr IV .[id number] [facility]; Protocol Propofol (Diprivan) 1,000 mg in 100 mls @ 2.595 mls/hr CONT INF .Q12H [facility]; Protocol Last Admin: 04/12/18 02:20 Dose: 2.595 mls/hr Fentanyl () 100 mls @ 5 mls/hr IV .Q20H [facility] Last Admin: 04/11/18 22:37 Dose: 5 mls/hr Sodium Chloride () 1,000 mls @ 100 mls/hr IV .Q10H [facility] Last Admin: 04/12/18 01:19 Dose: 100 mls/hr Sodium Chloride () 250 mls @ 15 mls/hr IV .[id number] PRN PRN Reason: SALINE FLUSH Influenza Virus Vaccine Quadrival (Fluarix/Fluzone) 0.5 ml IM .ONCE ONE Stop: 04/12/18 10:01 Nitroglycerin (Nitrostat) 0.4 mg SUBLINGUAL Q5M PRN PRN Reason: CARDIAC/CHEST PAIN Last Admin: 04/11/18 21:10 Dose: 0.4 mg Nitroglycerin (Nitrostat) 0.4 mg SUBLINGUAL Q5M PRN PRN Reason: CHEST PAIN Sodium Chloride () 5 - 30 ml IV UD PRN PRN Reason: SALINE FLUSH Medical Necessity - Tobacco Use Smoking Status: Current every day smoker Assessment/Plan All Active Problems CAD (coronary artery disease) (Acute) Chest pain (Acute) Abdominal distention (Acute) Shortness of breath (Acute) The patient is a 62 year old male patient with a significant past medical history of coronary artery disease with previous myocardial infarction and four vessel CABG in 2004, nicotine dependence of smoking history since age of 9, was admitted with shortness of breath. He has had distention of his abdomen and difficulty eating more than one meal a day for the past year. Last evening this became worse and he has become progressively short of breath. He never followed up after his CABG for routine management and has continued smoking. He does not want pain medications but does admit that he has chest pain, agreed for nitroglycerin but refused opioid. In ED, patient became progressively short of breath leading to intubation and admission in ICU EKG showed normal sinus rhythm at 93 bpm with intraventricular conduction delay. 1. Acute hypoxic respiratory failure secondary to heart failure from non-STEMI: Currently patient is intubated secondary to heart failure, most likely acute on chronic. Vent management as per zigzag elastic attacher. 2. Non-STEMI complicating acute on chronic heart failure with history of coronary artery status post CABG in 2004: Patient will have echo to further define heart failure. Seen by automatic machine attendant. On aspirin, Plavix, heparin drip. Currently, blood pressure is on lower side. As he recovers, will need beta-anup and RADHA inhibitor. As the patient becomes more stable, consideration for lcardiac cath. 3. Small and large bowel ileus: On abdominal x-ray diffuse ileus pattern was noted with nonspecific gas pattern. No definitive evidence for small bowel obstruction. Patient has OG tube 4. Other comorbid include obesity grade 1, nicotine dependence more than 40 pack years of smoking, hypertension: Laboratory Results 04/11/18 17:55: Troponin I 1.810 H* 04/11/18 23:35: Specimen Type ART, Sample Site R Brachial, pH 7.32 L, Bicarbonate Actual 20.4 L, POC Total CO2 22, Base Excess -6 L, O2 Saturation 86 L, O2 % 60, ABG pCO2 39.6, ABG pO2 56 L, Jeremías Test NA, Respiration Rate 26, O2 Delivery Device Vent, Minute Volume 14.00, Vent Mode A-C, Tidal Volume 500, POC PEEP 5, Blood Gas Notified Whom HOSP 04/11/18 23:50: Troponin I 1.610 H* 04/12/18 02:55: Troponin I 13.400 H* 04/12/18 04:10: WBC 11.1 H, RBC 4.93, Hgb 11.7 L, Hct 37.9 L, MCV 76.9 L, MCH 23.7 L, MCHC 30.9 L, RDW 17.0 H, RDW Differential 47.5 H, Plt Count 296, MPV 9.0 04/12/18 04:10: Sodium 138, Potassium 4.3, Chloride 105, Carbon Dioxide 25.0, Anion Gap 8, BUN 11, Creatinine 0.96, Estim Creat Clear Calc 72.00, Est GFR (MDRD) Af Amer 102, Est GFR (MDRD) Non-Af 84, BUN/Creatinine Ratio 11.4, Glucose 125 H, Calcium 8.5, Total Bilirubin 0.80, AST 99 H, ALT 23, Alkaline Phosphatase 110, Total Protein 7.1, Albumin 3.2, Globulin 3.9, Albumin/Globulin Ratio 0.8 L, Triglycerides 95, Cholesterol 152, LDL Cholesterol 106, VLDL Cholesterol 19, HDL Cholesterol 27 L 04/12/18 06:20: Troponin I 39.900 H* Clinical Impression(s) from Imaging Studies Acute Abdomen Series 04/11/18 18:10 IMPRESSION: Nonspecific ileus. Other findings as above Chest X-Ray 04/11/18 21:44 IMPRESSION: Findings which may be consistent with COPD and coexisting mild congestive failure status post intubation. Chest X-Ray 04/11/18 21:50 IMPRESSION: Findings which may be consistent with mild pulmonary interstitial edema status post endotracheal and orogastric tube placement Code Visit Inpatient E&M: [id number] [facility] Hosp L3
--- NOTE | 2018-04-12 07:38 | PN_ITS ---
Patient Problems: Active and Suspected Problems CAD (coronary artery disease) (Acute) Chest pain (Acute) Abdominal distention (Acute) Shortness of breath (Acute) Subjective: Patient is intubated on ventilator. Map more than 65. No fever. Patient on propofol and fentanyl drip. Vitals/I&O's: Vital Signs Temp Pulse Resp BP Pulse Ox 98.5 F 93 18 112/81 H 95 04/12/18 06:00 04/12/18 06:00 04/12/18 06:00 04/12/18 06:00 04/12/18 06:00 Oxygen Delivery Method Mechanical Ventilator Weight: 192 lb 3.889 oz Body Mass Index (BMI) 30.9 Intake and Output for Last 24 Hours 04/10/18 04/11/18 04/12/18 23:59 23:59 23:59 Intake Total 511.4 / 511.4 Output Total 150 / 150 Balance 361.4 / 361.4 General: - - Sedated HEENT: Atraumatic, PERRLA, EOMI, Normocephalic Oral: - - The ET and OG tube Lungs: - - On vent support Cardiovascular: Regular rate, Regular Rhythm, Normal S1, Normal S2 Abdomen: Bowel Sounds Present, Soft, Non Tender, Non-Distended Extremities: Edema Musculoskeletal: No Tenderness to Palpation of Joints or Extremities, Arthritic Changes Neurological: - - Sedated Current Medications Aspirin (Ecotrin) 325 mg PO DAILY@0800 [facility] Chlorhexidine Gluconate () 15 ml PO BID [facility] Last Admin: 04/11/18 23:00 Dose: 15 ml Chlorhexidine Gluconate () 1 each TOPICAL DAILY [facility] Last Admin: 04/12/18 06:07 Dose: 1 each Clopidogrel Bisulfate (Plavix) 75 mg PO DAILY [facility] Heparin Sodium (Porcine) (Heparin Na) 0 unit IV UD PRN; Protocol Heparin Sodium/Dextrose () 25,000 units in 250 mls @ 12 mls/hr IV .[id number] [facility]; Protocol Propofol (Diprivan) 1,000 mg in 100 mls @ 2.595 mls/hr CONT INF .Q12H [facility]; Protocol Last Admin: 04/12/18 02:20 Dose: 2.595 mls/hr Fentanyl () 100 mls @ 5 mls/hr IV .Q20H [facility] Last Admin: 04/11/18 22:37 Dose: 5 mls/hr Sodium Chloride () 1,000 mls @ 100 mls/hr IV .Q10H [facility] Last Admin: 04/12/18 01:19 Dose: 100 mls/hr Sodium Chloride () 250 mls @ 15 mls/hr IV .[id number] PRN PRN Reason: SALINE FLUSH Influenza Virus Vaccine Quadrival (Fluarix/Fluzone) 0.5 ml IM .ONCE ONE Stop: 04/12/18 10:01 Nitroglycerin (Nitrostat) 0.4 mg SUBLINGUAL Q5M PRN PRN Reason: CARDIAC/CHEST PAIN Last Admin: 04/11/18 21:10 Dose: 0.4 mg Nitroglycerin (Nitrostat) 0.4 mg SUBLINGUAL Q5M PRN PRN Reason: CHEST PAIN Sodium Chloride () 5 - 30 ml IV UD PRN PRN Reason: SALINE FLUSH Medical Necessity - Tobacco Use Smoking Status: Current every day smoker Assessment/Plan All Active Problems CAD (coronary artery disease) (Acute) Chest pain (Acute) Abdominal distention (Acute) Shortness of breath (Acute) The patient is a 62 year old male patient with a significant past medical history of coronary artery disease with previous myocardial infarction and four vessel CABG in 2004, nicotine dependence of smoking history since age of 9, was admitted with shortness of breath. He has had distention of his abdomen and difficulty eating more than one meal a day for the past year. Last evening this became worse and he has become progressively short of breath. He never followed up after his CABG for routine management and has continued smoking. He does not want pain medications but does admit that he has chest pain, agreed for nitroglycerin but refused opioid. In ED, patient became progressively short of breath leading to intubation and admission in ICU EKG showed normal sinus rhythm at 93 bpm with intraventricular conduction delay. 1. Acute hypoxic respiratory failure secondary to heart failure from non-STEMI: Currently patient is intubated secondary to heart failure, most likely acute on chronic. Vent management as per paper machine tender. 2. Non-STEMI complicating acute on chronic heart failure with history of coronary artery status post CABG in 2004: Patient will have echo to further define heart failure. Seen by inspector heating and refrigeration. On aspirin, Plavix, heparin drip. Currently, blood pressure is on lower side. As he recovers, will need beta- anup and RADHA inhibitor. As the patient becomes more stable, consideration for lcardiac cath. 3. Small and large bowel ileus: On abdominal x-ray diffuse ileus pattern was noted with nonspecific gas pattern. No definitive evidence for small bowel obstruction. Patient has OG tube 4. Other comorbid include obesity grade 1, nicotine dependence more than 40 pack years of smoking, hypertension: Laboratory Results 04/11/18 17:55: Troponin I 1.810 H* 04/11/18 23:35: Specimen Type ART, Sample Site R Brachial, pH 7.32 L, Bicarbonate Actual 20.4 L, POC Total CO2 22, Base Excess -6 L, O2 Saturation 86 L, O2 % 60, ABG pCO2 39.6, ABG pO2 56 L, Jeremías Test NA, Respiration Rate 26, O2 Delivery Device Vent, Minute Volume 14.00, Vent Mode A-C, Tidal Volume 500, POC PEEP 5, Blood Gas Notified Whom HOSP 04/11/18 23:50: Troponin I 1.610 H* 04/12/18 02:55: Troponin I 13.400 H* 04/12/18 04:10: WBC 11.1 H, RBC 4.93, Hgb 11.7 L, Hct 37.9 L, MCV 76.9 L, MCH 23.7 L, MCHC 30.9 L, RDW 17.0 H, RDW Differential 47.5 H, Plt Count 296, MPV 9.0 04/12/18 04:10: Sodium 138, Potassium 4.3, Chloride 105, Carbon Dioxide 25.0, Anion Gap 8, BUN 11, Creatinine 0.96, Estim Creat Clear Calc 72.00, Est GFR (MDRD) Af Amer 102, Est GFR (MDRD) Non-Af 84, BUN/Creatinine Ratio 11.4, Glucose 125 H, Calcium 8.5, Total Bilirubin 0.80, AST 99 H, ALT 23, Alkaline Phosphatase 110, Total Protein 7.1, Albumin 3.2, Globulin 3.9, Albumin/Globulin Ratio 0.8 L, Triglycerides 95, Cholesterol 152, LDL Cholesterol 106, VLDL Cholesterol 19, HDL Cholesterol 27 L 04/12/18 06:20: Troponin I 39.900 H* Clinical Impression(s) from Imaging Studies Acute Abdomen Series 04/11/18 18:10 IMPRESSION: Nonspecific ileus. Other findings as above Chest X-Ray 04/11/18 21:44 IMPRESSION: Findings which may be consistent with COPD and coexisting mild congestive failure status post intubation. Chest X-Ray 04/11/18 21:50 IMPRESSION: Findings which may be consistent with mild pulmonary interstitial edema status post endotracheal and orogastric tube placement Code Visit Inpatient E&M: [id number] [facility] Hosp L3
--- NOTE | 2018-04-12 09:48 | CASEMGMT ---
RN CM NOTE: Tertiary hospitals in Network w/[employer] per [facility] [employer] Website as follows: [facility], [facility] ([facility]), [facility], [facility], [facility], [facility], [facility], [facility], [employer] Christiano BSN RN CM
--- NOTE | 2018-04-12 10:07 | PCM.CON.CC ---
Problem List (1) CAD (coronary artery disease) Status: Acute Qualifiers: Coronary Disease-Associated Artery/Lesion type: [place] artery [place] vs. transplanted heart: [place] heart Associated angina: with other forms of angina Qualified Code(s): I25.118 - Atherosclerotic heart disease of [place] coronary artery with other forms of angina pectoris (2) Smoking greater than 40 pack years Status: Chronic (3) Chest pain Status: Acute (4) Abdominal distention Status: Acute (5) Shortness of breath Status: Acute Reason for Consult Date of Consultation: 04/12/18 Reason for Consultation: Respiratory failure History of Present Illness: The patient is a 62 year old M, with past medical history listed below, who really originally presented to [facility] on 04/11/2018 secondary to abdominal problems for the past year. Patient reportedly has had abdominal distention with frequent burping and dyspnea that he attributed to the abdominal distention. Patient reportedly has had normal bowel movements, but was having more and more problems with shortness of breath. Patient did have an EGD by Dr. Phillips in September and reportedly he was just full of gas. While in the emergency department, patient was complaining of some chest pain and increasing shortness of breath. Patient was noted to be 90-92% on room air. Patient then decompensated to 88% and had to be placed on nasal cannula oxygen. Patient was noted to have wheezing during this period of time. EKG was obtained and showed no significant change. As a discussion of BiPAP therapy, but patient ended up getting intubated. Patient was admitted to the intensive care unit. Patient was placed on heparin therapy for a possible pulmonary embolism, but no CT scan of the chest was obtained. Since being in the intensive care unit, patient has required increased FiO2 of 50%. Patient's troponin has consistently increased and last check was 39. Patient has remained hemodynamically stable otherwise. Patient's was present for rounds. Patient reportedly did start smoking at age 9. Patient uses Symbicort therapy and will get pneumonia if he does not use it for 2-3 days. No tobacco sampler has been seen in the past. Patient does have a history of a quadruple bypass. Patient reportedly was lost to follow-up and was only taking a baby aspirin for the last couple of months. Patient reportedly also has had a very minimal diet consisting of 3 fried eggs on a daily basis. Unable to obtain further review of systems given patient's intubated status. Past Medical History Past Medical History (Chronic Problems): Chronic Problems Smoking greater than 40 pack years (Chronic) Allergies No Known Allergies Allergy (Verified 04/11/18 17:13) Home Medications: Ambulatory Orders Medication Instructions Recorded Aspirin [Aspirin, Baby] 81 mg PO DAILY 04/11/18 Budesonide/Formoterol 160/4.5 2 puff INHALATION BID 04/11/18 [Symbicort 160/4.5 Mcg Inhaler (SP)] Omeprazole 40 mg PO DAILY 04/11/18 Simethicone [Gas Relief] 125 mg PO Q4H 04/11/18 Surgical History: coronary bypass surgery Smoking Status: Current every day smoker Alcohol: None Drugs: None - *Family History Sibling History Items: - - of [place] Review of Systems Comment: See HPI Patient Problems: Active and Suspected Problems CAD (coronary artery disease) (Acute) Chest pain (Acute) Abdominal distention (Acute) Shortness of breath (Acute) Objective: All imaging was personally reviewed. Chest x-ray showed an elevated endotracheal tube with bilateral alveolar infiltrates. - Physical Exam General: - - RASS -1. Good vent synchrony noted. Follows some commands. Appears older than stated age. HEENT: Atraumatic, PERRLA, EOMI, Normocephalic, - - Light scleral injection without icterus Oral: Moist Mucosa, No Gingival or Mucosal Lesions/ Ulcerations Neck: Supple, No JVD, No Nodes, Trachea Midline Lungs: No rhonchi, Diminished, Rales, Wheezes - Sporadic, - - Symmetric expansion. No dullness to percussion. Cardiovascular: Regular rate, Regular Rhythm, Normal S1, Normal S2, No murmurs, No rub noted, No Gallop Abdomen: Bowel Sounds Present, Soft, Non Tender, Distended, - - No fluid wave could be elicited Extremities: No cyanosis, No edema, Clubbing Skin: No rashes, No breakdown Musculoskeletal: No Tenderness to Palpation of Joints or Extremities Lymphatic: No Cervical, Supraclavicular, or Inguinal Adenopathy Neurological: Cranial nerves II-XII grossly intact, Neuro grossly intact, Motor Exam 5/5 strength throughout Psych/Mental Status: Normal Affect, Appropriate Vital Signs Temp Pulse Resp BP Pulse Ox 37.2 C 92 14 96/73 95 04/12/18 09:00 04/12/18 09:00 04/12/18 09:00 04/12/18 09:00 04/12/18 09:00 Oxygen Delivery Method Mechanical Ventilator Weight: 87.2 kg Body Mass Index (BMI) 30.9 Intake and Output for Last 24 Hours 04/10/18 04/11/18 04/12/18 23:59 23:59 23:59 Intake Total 511.4 / 511.4 Output Total 150 / 150 Balance 361.4 / 361.4 Laboratory Tests Past 24 Hrs 04/11/18 04/11/18 04/11/18 17:55 17:55 17:55 WBC 9.9 RBC 5.38 Hgb 12.7 L Hct 41.1 MCV 76.4 L MCH 23.6 L MCHC 30.9 L RDW 17.0 H RDW Differential 47.2 H Plt Count 307 MPV 8.7 Immature Gran % (Auto) 0.100 Neut % (Auto) 67.0 Lymph % (Auto) 23.2 [place] % (Auto) 7.0 Eos % (Auto) 2.1 Baso % (Auto) 0.6 Absolute Neuts (auto) 6.7 Absolute Lymphs (auto) 2.30 Total Counted Not Reportable Platelet Estimate ADEQUATE Hypochromasia 2+ Ovalocytes 1+ PT INR APTT Specimen Type Sample Site pH Bicarbonate Actual POC Total CO2 Base Excess O2 Saturation O2 % ABG pCO2 ABG pO2 Jeremías Test Respiration Rate O2 Delivery Device Minute Volume Vent Mode Tidal Volume POC PEEP Blood Gas Notified Whom Sodium 135 L Potassium 4.1 Chloride 100 Carbon Dioxide 29.0 Anion Gap 6 BUN 8 Creatinine 1.05 Estim Creat Clear Calc 65.83 Est GFR (MDRD) Af Amer 92 Est GFR (MDRD) Non-Af 76 BUN/Creatinine Ratio 7.6 L Glucose 88 Calcium 9.2 Total Bilirubin 0.80 Direct Bilirubin 0.24 AST 20 ALT 16 Alkaline Phosphatase 127 H Total Creatine Kinase Troponin I 1.810 H* Total Protein 8.2 Albumin 3.8 Globulin 4.4 H Albumin/Globulin Ratio Triglycerides Cholesterol LDL Cholesterol VLDL Cholesterol HDL Cholesterol Lipase 113 04/11/18 04/11/18 04/11/18 21:50 23:35 23:50 WBC RBC Hgb Hct MCV MCH MCHC RDW RDW Differential Plt Count MPV Immature Gran % (Auto) Neut % (Auto) Lymph % (Auto) [place] % (Auto) Eos % (Auto) Baso % (Auto) Absolute Neuts (auto) Absolute Lymphs (auto) Total Counted Platelet Estimate Hypochromasia Ovalocytes PT 15.1 H INR 1.2 APTT 29.1 Specimen Type ART Sample Site R Brachial pH 7.32 L Bicarbonate Actual 20.4 L POC Total CO2 22 Base Excess -6 L O2 Saturation 86 L O2 % 60 ABG pCO2 39.6 ABG pO2 56 L Jeremías Test NA Respiration Rate 26 O2 Delivery Device Vent Minute Volume 14.00 Vent Mode A-C Tidal Volume 500 POC PEEP 5 Blood Gas Notified Whom TA MALDONADO Sodium Potassium Chloride Carbon Dioxide Anion Gap BUN Creatinine Estim Creat Clear Calc Est GFR (MDRD) Af Amer Est GFR (MDRD) Non-Af BUN/Creatinine Ratio Glucose Calcium Total Bilirubin Direct Bilirubin AST ALT Alkaline Phosphatase Total Creatine Kinase 119 Troponin I Total Protein Albumin Globulin Albumin/Globulin Ratio Triglycerides 78 Cholesterol LDL Cholesterol VLDL Cholesterol HDL Cholesterol Lipase 04/11/18 04/12/18 04/12/18 23:50 02:34 02:55 WBC RBC Hgb Hct MCV MCH MCHC RDW RDW Differential Plt Count MPV Immature Gran % (Auto) Neut % (Auto) Lymph % (Auto) [place] % (Auto) Eos % (Auto) Baso % (Auto) Absolute Neuts (auto) Absolute Lymphs (auto) Total Counted Platelet Estimate Hypochromasia Ovalocytes PT INR APTT Specimen Type ART Sample Site R Brachial pH 7.35 Bicarbonate Actual 25.2 POC Total CO2 27 Base Excess 0 O2 Saturation 94 L O2 % 50 ABG pCO2 46.0 H ABG pO2 75 Jeremías Test NA Respiration Rate 12 O2 Delivery Device Vent Minute Volume 6.00 Vent Mode A-C Tidal Volume 500 POC PEEP 5 Blood Gas Notified Whom TA [place]DON[place]O Sodium Potassium Chloride Carbon Dioxide Anion Gap BUN Creatinine Estim Creat Clear Calc Est GFR (MDRD) Af Amer Est GFR (MDRD) Non-Af BUN/Creatinine Ratio Glucose Calcium Total Bilirubin Direct Bilirubin AST ALT Alkaline Phosphatase Total Creatine Kinase Troponin I 1.610 H* 13.400 H* Total Protein Albumin Globulin Albumin/Globulin Ratio Triglycerides Cholesterol LDL Cholesterol VLDL Cholesterol HDL Cholesterol Lipase 04/12/18 04/12/18 04/12/18 04:10 04:10 04:10 WBC 11.1 H RBC 4.93 Hgb 11.7 L Hct 37.9 L MCV 76.9 L MCH 23.7 L MCHC 30.9 L RDW 17.0 H RDW Differential 47.5 H Plt Count 296 MPV 9.0 Immature Gran % (Auto) Neut % (Auto) Lymph % (Auto) [place] % (Auto) Eos % (Auto) Baso % (Auto) Absolute Neuts (auto) Absolute Lymphs (auto) Total Counted Platelet Estimate Hypochromasia Ovalocytes PT INR APTT 101.9 H* Specimen Type Sample Site pH Bicarbonate Actual POC Total CO2 Base Excess O2 Saturation O2 % ABG pCO2 ABG pO2 Jeremías Test Respiration Rate O2 Delivery Device Minute Volume Vent Mode Tidal Volume POC PEEP Blood Gas Notified Whom Sodium 138 Potassium 4.3 Chloride 105 Carbon Dioxide 25.0 Anion Gap 8 BUN 11 Creatinine 0.96 Estim Creat Clear Calc 72.00 Est GFR (MDRD) Af Amer 102 Est GFR (MDRD) Non-Af 84 BUN/Creatinine Ratio 11.4 Glucose 125 H Calcium 8.5 Total Bilirubin 0.80 Direct Bilirubin AST 99 H ALT 23 Alkaline Phosphatase 110 Total Creatine Kinase Troponin I Total Protein 7.1 Albumin 3.2 Globulin 3.9 Albumin/Globulin Ratio 0.8 L Triglycerides 95 Cholesterol 152 LDL Cholesterol 106 VLDL Cholesterol 19 HDL Cholesterol 27 L Lipase 04/12/18 06:20 WBC RBC Hgb Hct MCV MCH MCHC RDW RDW Differential Plt Count MPV Immature Gran % (Auto) Neut % (Auto) Lymph % (Auto) [place] % (Auto) Eos % (Auto) Baso % (Auto) Absolute Neuts (auto) Absolute Lymphs (auto) Total Counted Platelet Estimate Hypochromasia Ovalocytes PT INR APTT Specimen Type Sample Site pH Bicarbonate Actual POC Total CO2 Base Excess O2 Saturation O2 % ABG pCO2 ABG pO2 Jeremías Test Respiration Rate O2 Delivery Device Minute Volume Vent Mode Tidal Volume POC PEEP Blood Gas Notified Whom Sodium Potassium Chloride Carbon Dioxide Anion Gap BUN Creatinine Estim Creat Clear Calc Est GFR (MDRD) Af Amer Est GFR (MDRD) Non-Af BUN/Creatinine Ratio Glucose Calcium Total Bilirubin Direct Bilirubin AST ALT Alkaline Phosphatase Total Creatine Kinase Troponin I 39.900 H* Total Protein Albumin Globulin Albumin/Globulin Ratio Triglycerides Cholesterol LDL Cholesterol VLDL Cholesterol HDL Cholesterol Lipase Clinical Impression(s) from Imaging Studies Acute Abdomen Series 04/11/18 18:10 IMPRESSION: Nonspecific ileus. Other findings as above Electronically Signed: Ranjit David MD at 18:22 EDT , Service support , Chest X-Ray 04/11/18 21:44 IMPRESSION: Findings which may be consistent with COPD and coexisting mild congestive failure status post intubation. Electronically Signed: Ranjit David MD at 22:55 EDT , Service support , Chest X-Ray 04/11/18 21:50 IMPRESSION: Findings which may be consistent with mild pulmonary interstitial edema status post endotracheal and orogastric tube placement Electronically Signed: Ranjit David MD at 22:55 EDT , Service support , Assessment/Plan Active and Suspected Problems CAD (coronary artery disease) (Acute) Chest pain (Acute) Abdominal distention (Acute) Shortness of breath (Acute) RECOMMENDATIONS: 1. Continue heparin drip 2. May need to add diuretic therapy if okay with cardiology 3. Propofol and fentanyl for vent synchrony 4. Spontaneous breathing trial and awakening trials per protocol IMPRESSIONS: 1. Acute hypoxic respiratory failure secondary to CHF secondary to non-ST elevation [place] Chest x-ray shows an alveolar infiltrate bilaterally, likely secondary to acute CHF. Patient is not had an echocardiogram for quantification and clarification of heart function. Patient has had an elevation in troponin, but EKGs remained relatively stable. Cardiology has been consulted. Patient may require diuretic therapy, but defer to cardiology. Optimization meds have been initiated. Patient is on full anticoagulation, Plavix and aspirin. Patient will likely require a heart catheterization at some point for evaluation. 2. Abdominal pain/bloating Clinical suspicion for small and large bowel ileus secondary to decreased perfusion. Patient does have a history of vascular disease and is not been compliant with medical therapy. Patient may require an angiography in the future for evaluation. Will hold off on tube feeds for 24 hours. May give a challenge of tube feeds tomorrow. No signs or symptoms of abdominal compartment syndrome at this time. 3. Obesity/probable COPD/hypertension/poor compliance Complicates care, management, recovery and prognosis. Patient is never had pulmonary function tests for quantification and clarification of lung function. Will put on empiric DuoNeb therapy. Monitor blood pressure this patient is currently on propofol. TIME: 45 minutes critical care time spent addressing patient's acute hypoxic respiratory failure, CHF, review of all data and collaboration with care team (9 AM to 10:20 AM) Code Visit [id number]: [id number] Critical care first hour
--- NOTE | 2018-04-12 10:12 | CON.PCM_ITS ---
Problem List (1) CAD (coronary artery disease) Status: Acute Qualifiers: Coronary Disease-Associated Artery/Lesion type: [place] artery [place] vs. transplanted heart: [place] heart Associated angina: with other forms of angina Qualified Code(s): I25.118 - Atherosclerotic heart disease of [place] coronary artery with other forms of angina pectoris (2) Smoking greater than 40 pack years Status: Chronic (3) Chest pain Status: Acute (4) Abdominal distention Status: Acute (5) Shortness of breath Status: Acute Reason for Consult Date of Consultation: 04/12/18 Reason for Consultation: Respiratory failure History of Present Illness: The patient is a 62 year old M, with past medical history listed below, who really originally presented to [facility] on 04/11/2018 secondary to abdominal problems for the past year. Patient reportedly has had abdominal distention with frequent burping and dyspnea that he attributed to the abdominal distention. Patient reportedly has had normal bowel movements, but was having more and more problems with shortness of breath. Patient did have an EGD by Dr. Phillips in September and reportedly he was just full of gas. While in the emergency department, patient was complaining of some chest pain and increasing shortness of breath. Patient was noted to be 90-92% on room air. Patient then decompensated to 88% and had to be placed on nasal cannula oxygen. Patient was noted to have wheezing during this period of time. EKG was obtained and showed no significant change. As a discussion of BiPAP therapy, but patient ended up getting intubated. Patient was admitted to the intensive care unit. Patient was placed on heparin therapy for a possible pulmonary embolism, but no CT scan of the chest was obtained. Since being in the intensive care unit, patient has required increased FiO2 of 50%. Patient's troponin has consistently increased and last check was 39. Patient has remained hemodynamically stable otherwise. Patient's was present for rounds. Patient reportedly did start smoking at age 9. Patient uses Symbicort therapy and will get pneumonia if he does not use it for 2-3 days. No sushi chef has been seen in the past. Patient does have a history of a quadruple bypass. Patient reportedly was lost to follow-up and was only taking a baby aspirin for the last couple of months. Patient reportedly also has had a very minimal diet consisting of 3 fried eggs on a daily basis. Unable to obtain further review of systems given patient's intubated status. Past Medical History Past Medical History (Chronic Problems): Chronic Problems Smoking greater than 40 pack years (Chronic) Allergies No Known Allergies Allergy (Verified 04/11/18 17:13) Home Medications: Ambulatory Orders Medication Instructions Recorded Aspirin [Aspirin, Baby] 81 mg PO DAILY 04/11/18 Budesonide/Formoterol 160/4.5 2 puff INHALATION BID 04/11/18 [Symbicort 160/4.5 Mcg Inhaler (SP)] Omeprazole 40 mg PO DAILY 04/11/18 Simethicone [Gas Relief] 125 mg PO Q4H 04/11/18 Surgical History: coronary bypass surgery Smoking Status: Current every day smoker Alcohol: None Drugs: None - *Family History Sibling History Items: - - of [place] Review of Systems Comment: See HPI Patient Problems: Active and Suspected Problems CAD (coronary artery disease) (Acute) Chest pain (Acute) Abdominal distention (Acute) Shortness of breath (Acute) Objective: All imaging was personally reviewed. Chest x-ray showed an elevated endotracheal tube with bilateral alveolar infiltrates. - Physical Exam General: - - RASS -1. Good vent synchrony noted. Follows some commands. Appears older than stated age. HEENT: Atraumatic, PERRLA, EOMI, Normocephalic, - - Light scleral injection without icterus Oral: Moist Mucosa, No Gingival or Mucosal Lesions/ Ulcerations Neck: Supple, No JVD, No Nodes, Trachea Midline Lungs: No rhonchi, Diminished, Rales, Wheezes - Sporadic, - - Symmetric expansion. No dullness to percussion. Cardiovascular: Regular rate, Regular Rhythm, Normal S1, Normal S2, No murmurs, No rub noted, No Gallop Abdomen: Bowel Sounds Present, Soft, Non Tender, Distended, - - No fluid wave could be elicited Extremities: No cyanosis, No edema, Clubbing Skin: No rashes, No breakdown Musculoskeletal: No Tenderness to Palpation of Joints or Extremities Lymphatic: No Cervical, Supraclavicular, or Inguinal Adenopathy Neurological: Cranial nerves II-XII grossly intact, Neuro grossly intact, Motor Exam 5/5 strength throughout Psych/Mental Status: Normal Affect, Appropriate Vital Signs Temp Pulse Resp BP Pulse Ox 37.2 C 92 14 96/73 95 04/12/18 09:00 04/12/18 09:00 04/12/18 09:00 04/12/18 09:00 04/12/18 09:00 Oxygen Delivery Method Mechanical Ventilator Weight: 87.2 kg Body Mass Index (BMI) 30.9 Intake and Output for Last 24 Hours 04/10/18 04/11/18 04/12/18 23:59 23:59 23:59 Intake Total 511.4 / 511.4 Output Total 150 / 150 Balance 361.4 / 361.4 Laboratory Tests Past 24 Hrs 04/11/18 04/11/18 04/11/18 17:55 17:55 17:55 WBC 9.9 RBC 5.38 Hgb 12.7 L Hct 41.1 MCV 76.4 L MCH 23.6 L MCHC 30.9 L RDW 17.0 H RDW Differential 47.2 H Plt Count 307 MPV 8.7 Immature Gran % (Auto) 0.100 Neut % (Auto) 67.0 Lymph % (Auto) 23.2 [place] % (Auto) 7.0 Eos % (Auto) 2.1 Baso % (Auto) 0.6 Absolute Neuts (auto) 6.7 Absolute Lymphs (auto) 2.30 Total Counted Not Reportable Platelet Estimate ADEQUATE Hypochromasia 2+ Ovalocytes 1+ PT INR APTT Specimen Type Sample Site pH Bicarbonate Actual POC Total CO2 Base Excess O2 Saturation O2 % ABG pCO2 ABG pO2 Jeremías Test Respiration Rate O2 Delivery Device Minute Volume Vent Mode Tidal Volume POC PEEP Blood Gas Notified Whom Sodium 135 L Potassium 4.1 Chloride 100 Carbon Dioxide 29.0 Anion Gap 6 BUN 8 Creatinine 1.05 Estim Creat Clear Calc 65.83 Est GFR (MDRD) Af Amer 92 Est GFR (MDRD) Non-Af 76 BUN/Creatinine Ratio 7.6 L Glucose 88 Calcium 9.2 Total Bilirubin 0.80 Direct Bilirubin 0.24 AST 20 ALT 16 Alkaline Phosphatase 127 H Total Creatine Kinase Troponin I 1.810 H* Total Protein 8.2 Albumin 3.8 Globulin 4.4 H Albumin/Globulin Ratio Triglycerides Cholesterol LDL Cholesterol VLDL Cholesterol HDL Cholesterol Lipase 113 04/11/18 04/11/18 04/11/18 21:50 23:35 23:50 WBC RBC Hgb Hct MCV MCH MCHC RDW RDW Differential Plt Count MPV Immature Gran % (Auto) Neut % (Auto) Lymph % (Auto) [place] % (Auto) Eos % (Auto) Baso % (Auto) Absolute Neuts (auto) Absolute Lymphs (auto) Total Counted Platelet Estimate Hypochromasia Ovalocytes PT 15.1 H INR 1.2 APTT 29.1 Specimen Type ART Sample Site R Brachial pH 7.32 L Bicarbonate Actual 20.4 L POC Total CO2 22 Base Excess -6 L O2 Saturation 86 L O2 % 60 ABG pCO2 39.6 ABG pO2 56 L Jeremías Test NA Respiration Rate 26 O2 Delivery Device Vent Minute Volume 14.00 Vent Mode A-C Tidal Volume 500 POC PEEP 5 Blood Gas Notified Whom TA MALDONADO Sodium Potassium Chloride Carbon Dioxide Anion Gap BUN Creatinine Estim Creat Clear Calc Est GFR (MDRD) Af Amer Est GFR (MDRD) Non-Af BUN/Creatinine Ratio Glucose Calcium Total Bilirubin Direct Bilirubin AST ALT Alkaline Phosphatase Total Creatine Kinase 119 Troponin I Total Protein Albumin Globulin Albumin/Globulin Ratio Triglycerides 78 Cholesterol LDL Cholesterol VLDL Cholesterol HDL Cholesterol Lipase 04/11/18 04/12/18 04/12/18 23:50 02:34 02:55 WBC RBC Hgb Hct MCV MCH MCHC RDW RDW Differential Plt Count MPV Immature Gran % (Auto) Neut % (Auto) Lymph % (Auto) [place] % (Auto) Eos % (Auto) Baso % (Auto) Absolute Neuts (auto) Absolute Lymphs (auto) Total Counted Platelet Estimate Hypochromasia Ovalocytes PT INR APTT Specimen Type ART Sample Site R Brachial pH 7.35 Bicarbonate Actual 25.2 POC Total CO2 27 Base Excess 0 O2 Saturation 94 L O2 % 50 ABG pCO2 46.0 H ABG pO2 75 Jeremías Test NA Respiration Rate 12 O2 Delivery Device Vent Minute Volume 6.00 Vent Mode A-C Tidal Volume 500 POC PEEP 5 Blood Gas Notified Whom TA MALDONADO Sodium Potassium Chloride Carbon Dioxide Anion Gap BUN Creatinine Estim Creat Clear Calc Est GFR (MDRD) Af Amer Est GFR (MDRD) Non-Af BUN/Creatinine Ratio Glucose Calcium Total Bilirubin Direct Bilirubin AST ALT Alkaline Phosphatase Total Creatine Kinase Troponin I 1.610 H* 13.400 H* Total Protein Albumin Globulin Albumin/Globulin Ratio Triglycerides Cholesterol LDL Cholesterol VLDL Cholesterol HDL Cholesterol Lipase 04/12/18 04/12/18 04/12/18 04:10 04:10 04:10 WBC 11.1 H RBC 4.93 Hgb 11.7 L Hct 37.9 L MCV 76.9 L MCH 23.7 L MCHC 30.9 L RDW 17.0 H RDW Differential 47.5 H Plt Count 296 MPV 9.0 Immature Gran % (Auto) Neut % (Auto) Lymph % (Auto) [place] % (Auto) Eos % (Auto) Baso % (Auto) Absolute Neuts (auto) Absolute Lymphs (auto) Total Counted Platelet Estimate Hypochromasia Ovalocytes PT INR APTT 101.9 H* Specimen Type Sample Site pH Bicarbonate Actual POC Total CO2 Base Excess O2 Saturation O2 % ABG pCO2 ABG pO2 Jeremías Test Respiration Rate O2 Delivery Device Minute Volume Vent Mode Tidal Volume POC PEEP Blood Gas Notified Whom Sodium 138 Potassium 4.3 Chloride 105 Carbon Dioxide 25.0 Anion Gap 8 BUN 11 Creatinine 0.96 Estim Creat Clear Calc 72.00 Est GFR (MDRD) Af Amer 102 Est GFR (MDRD) Non-Af 84 BUN/Creatinine Ratio 11.4 Glucose 125 H Calcium 8.5 Total Bilirubin 0.80 Direct Bilirubin AST 99 H ALT 23 Alkaline Phosphatase 110 Total Creatine Kinase Troponin I Total Protein 7.1 Albumin 3.2 Globulin 3.9 Albumin/Globulin Ratio 0.8 L Triglycerides 95 Cholesterol 152 LDL Cholesterol 106 VLDL Cholesterol 19 HDL Cholesterol 27 L Lipase 04/12/18 06:20 WBC RBC Hgb Hct MCV MCH MCHC RDW RDW Differential Plt Count MPV Immature Gran % (Auto) Neut % (Auto) Lymph % (Auto) [place] % (Auto) Eos % (Auto) Baso % (Auto) Absolute Neuts (auto) Absolute Lymphs (auto) Total Counted Platelet Estimate Hypochromasia Ovalocytes PT INR APTT Specimen Type Sample Site pH Bicarbonate Actual POC Total CO2 Base Excess O2 Saturation O2 % ABG pCO2 ABG pO2 Jeremías Test Respiration Rate O2 Delivery Device Minute Volume Vent Mode Tidal Volume POC PEEP Blood Gas Notified Whom Sodium Potassium Chloride Carbon Dioxide Anion Gap BUN Creatinine Estim Creat Clear Calc Est GFR (MDRD) Af Amer Est GFR (MDRD) Non-Af BUN/Creatinine Ratio Glucose Calcium Total Bilirubin Direct Bilirubin AST ALT Alkaline Phosphatase Total Creatine Kinase Troponin I 39.900 H* Total Protein Albumin Globulin Albumin/Globulin Ratio Triglycerides Cholesterol LDL Cholesterol VLDL Cholesterol HDL Cholesterol Lipase Clinical Impression(s) from Imaging Studies Acute Abdomen Series 04/11/18 18:10 IMPRESSION: Nonspecific ileus. Other findings as above Electronically Signed: Ranjit David MD at 18:22 EDT , Service support , Chest X-Ray 04/11/18 21:44 IMPRESSION: Findings which may be consistent with COPD and coexisting mild congestive failure status post intubation. Electronically Signed: Ranjit David MD at 22:55 EDT , Service support , Chest X-Ray 04/11/18 21:50 IMPRESSION: Findings which may be consistent with mild pulmonary interstitial edema status post endotracheal and orogastric tube placement Electronically Signed: Ranjit David MD at 22:55 EDT , Service support , Assessment/Plan Active and Suspected Problems CAD (coronary artery disease) (Acute) Chest pain (Acute) Abdominal distention (Acute) Shortness of breath (Acute) RECOMMENDATIONS: 1. Continue heparin drip 2. May need to add diuretic therapy if okay with cardiology 3. Propofol and fentanyl for vent synchrony 4. Spontaneous breathing trial and awakening trials per protocol IMPRESSIONS: 1. Acute hypoxic respiratory failure secondary to CHF secondary to non-ST elevation [place] Chest x-ray shows an alveolar infiltrate bilaterally, likely secondary to acute CHF. Patient is not had an echocardiogram for quantification and clarification of heart function. Patient has had an elevation in troponin, but EKGs remained relatively stable. Cardiology has been consulted. Patient may require diuretic therapy, but defer to cardiology. Optimization meds have been initiated. Patient is on full anticoagulation, Plavix and aspirin. Patient will likely require a heart catheterization at some point for evaluation. 2. Abdominal pain/bloating Clinical suspicion for small and large bowel ileus secondary to decreased perfusion. Patient does have a history of vascular disease and is not been compliant with medical therapy. Patient may require an angiography in the future for evaluation. Will hold off on tube feeds for 24 hours. May give a challenge of tube feeds tomorrow. No signs or symptoms of abdominal compartment syndrome at this time. 3. Obesity/probable COPD/hypertension/poor compliance Complicates care, management, recovery and prognosis. Patient is never had pulmonary function tests for quantification and clarification of lung function. Will put on empiric DuoNeb therapy. Monitor blood pressure this patient is currently on propofol. TIME: 45 minutes critical care time spent addressing patient's acute hypoxic respiratory failure, CHF, review of all data and collaboration with care team (9 AM to 10:20 AM) Code Visit 9xxxx: [id number] Critical care first hour
[2018-04-12] MEDS: Chlorhexidine 15 ML PO ×2 (10:18→21:28)
[2018-04-12] MEDS: Aspirin 325 MG Tablet GT (10:18)
[2018-04-12] MEDS: Clopidogrel Bisulfate 75 MG Tablet GT (10:19)
[2018-04-12 10:47] LABS: Partial Thromboplast Time 46.2 Seconds (24.1-36.2)
[2018-04-12] MEDS: Heparin Injection (Vial) 5,000 UNIT/ML VIAL IV (11:14)
[2018-04-12] MEDS: 0.9% NaCl Peripheral Flush Adult/Peds IV ×2 (11:15→16:08)
--- NOTE | 2018-04-12 12:25 | CASEMGMT ---
VILMA KUMAR INITIAL REVIEW ASSESSMENT D/C PLAN: Undetermined. Face to Face with patient for initial transition planning/care coordination assessment. Pt is currently intubated and sedated. Pt's and daughter @ bedside and agreeable to assessment. VILMA KUMAR introduced self and role at [facility]. Care providers, pharmacy, and demographics verified. PCP: Dr Willi Juares Preferred Pharmacy: Gets some meds/long-term meds through mail-in pharmacy. [facility] [employer] [facility] retail on d/c day only. Insurance: [employer] [facility] only Prescription Benefit: Yes Living Will/HPOA: states pt does not currently have LW or HPOA and she is interested in more information. AD packet given and asks for SW to come talk to pt once he is off of the ventilator and able to make decisions. was also made aware appt can be made with SW as an out-pt for these to be completed. LNOK: , Sherice. Living Arrangements: Lives at home with his . Lives in a 2-story home w/1st floor set up. reports there are no steps going into the home. reports pt was able to do own personal ADL's such as bathing and dressing prior to hospitalization. states she has been doing most of the chores, meals, and bills and finances recently as pt has been declining and not feeling well. She reports pt has still been able to babysit his grandkids some. Transportation: reports pt was currently driving prior to hospitalization. She states she is able to provide transportation for pt if he would be unable to. DME: reports pt has a hand-held shower, a nebulizer, and a cane. She states pt could benefit from getting a shower chair, walker, and a wheelchair. reports no preference of DME company. HHC/SNF: Discharge planning undetermined at this time d/t pt condition. Will continue to monitor pt's progress to determine discharge plan. CM to follow for further discharge planning needs. Christiano GARZA RN, CM
--- NOTE | 2018-04-12 12:52 | NURSING ---
Teaching of pt chronic medical conditions deferred until pt no longer sedated on vent and able to participate in discussion
[2018-04-12] MEDS: Ipratropium/Albuterol Sulfate 3 ML AMPUL.NEB INHALATION ×2 (13:21→18:29)
[2018-04-12] MEDS: fentaNYL drip 100 ML 5 MCG IV (14:58)
[2018-04-12] MEDS: Vital AF 1.2 Cal Liquid 1,000 ML 70 ML GT (16:06)
[2018-04-12] MEDS: Furosemide 20 MG/2 ML VIAL IV (16:08)
[2018-04-12] MEDS: Clopidogrel Bisulfate 300 MG Tablet PO (16:27)
--- NOTE | 2018-04-12 16:37 | PCM.PN.CARD ---
Subjectve: The patient remains mechanically intubated and ventilated and sedated. His family member states that he has been ill over the last 6 months and more so over the last 2 months. He has apparently been complaining of shortness of breath/dyspnea, abdominal discomfort/bloating, and fatigue. If he has not used his inhalers he has had cough and phlegm-like production. Objective: Vital Signs Temp Pulse Resp BP Pulse Ox 100.3 F H 87 22 H 100/73 90 04/12/18 16:00 04/12/18 16:00 04/12/18 16:00 04/12/18 16:00 04/12/18 16:00 Oxygen Delivery Method Mechanical Ventilator Weight: 192 lb 3.889 oz Body Mass Index (BMI) 30.9 Intake and Output for Last 24 Hours 04/10/18 04/11/18 04/12/18 23:59 23:59 23:59 Intake Total 1258.2 / 1258.2 Output Total 325 / 325 Balance 933.2 / 933.2 Lungs: Rhonchi Cardiovascular: Regular Rhythm, Premature Ectopic Beats, Normal S1, Normal S2 Abdomen: Hypoactive Bowel Sounds Extremities: No edema 04/11/18 17:55: WBC 9.9, RBC 5.38, Hgb 12.7 L, Hct 41.1, MCV 76.4 L, MCH 23.6 L, MCHC 30.9 L, RDW 17.0 H, RDW Differential 47.2 H, Plt Count 307, MPV 8.7, Immature Gran % (Auto) 0.100, Neut % (Auto) 67.0, Lymph % (Auto) 23.2, [place] % (Auto) 7.0, Eos % (Auto) 2.1, Baso % (Auto) 0.6, Absolute Neuts (auto) 6.7, Total Counted Not Reportable 04/11/18 17:55: Sodium 135 L, Potassium 4.1, Chloride 100, Carbon Dioxide 29.0, Anion Gap 6, BUN 8, Creatinine 1.05, Est GFR (MDRD) Af Amer 92, Est GFR (MDRD) Non-Af 76, BUN/Creatinine Ratio 7.6 L, Glucose 88, Calcium 9.2, Total Bilirubin 0.80, Direct Bilirubin 0.24 04/11/18 17:55: Troponin I 1.810 H* 04/11/18 21:50: PT 15.1 H, INR 1.2, APTT 29.1 04/11/18 23:35: pH 7.32 L, Bicarbonate Actual 20.4 L, POC Total CO2 22, Base Excess -6 L, O2 Saturation 86 L, ABG pCO2 39.6, ABG pO2 56 L, Jeremías Test NA 04/11/18 23:50: Triglycerides 78 04/11/18 23:50: Troponin I 1.610 H* 04/12/18 02:34: pH 7.35, Bicarbonate Actual 25.2, POC Total CO2 27, Base Excess 0, O2 Saturation 94 L, ABG pCO2 46.0 H, ABG pO2 75, Jeremías Test NA 04/12/18 02:55: Troponin I 13.400 H* 04/12/18 04:10: WBC 11.1 H, RBC 4.93, Hgb 11.7 L, Hct 37.9 L, MCV 76.9 L, MCH 23.7 L, MCHC 30.9 L, RDW 17.0 H, RDW Differential 47.5 H, Plt Count 296, MPV 9.0 04/12/18 04:10: Sodium 138, Potassium 4.3, Chloride 105, Carbon Dioxide 25.0, Anion Gap 8, BUN 11, Creatinine 0.96, Est GFR (MDRD) Af Amer 102, Est GFR (MDRD) Non-Af 84, BUN/Creatinine Ratio 11.4, Glucose 125 H, Calcium 8.5, Total Bilirubin 0.80, Triglycerides 95, Cholesterol 152, LDL Cholesterol 106, VLDL Cholesterol 19, HDL Cholesterol 27 L 04/12/18 04:10: APTT 101.9 H* 04/12/18 06:20: Troponin I 39.900 H* 04/12/18 10:15: APTT 46.2 H Rhythm: Sinus rhythm; C; nonsustained wide complex tachycardia EKG: Sinus rhythm; PVCs; low voltage QRS in the limb leads; poor R wave progression; nonspecific ST segment abnormality ECHO: 04/12/2018 Interpretation Summary Moderately dilated left ventricle. The estimated ejection fraction is 15 %. Severe segmental systolic dysfunction (see wall motion). Stage 3 diastolic dysfunction. Compared to the previous there is a significant change Cardiac Cath: 01/10/2003: [facility]: Mild elevation of the left ventricular end-diastolic pressures, mild elevation of the intrapulmonary right heart pressures possibly related to the elevated LVED P, otherwise an underlying pulmonary component, and or relationship to the possible intracardiac shunting phenomena may not necessarily be excluded; O2 saturation suggesting a left to right anterior atrial shunt with an oxygen step up from the SVC of 56% to the RA of 66% and a Qp/Qs ratio of approximately 1.2; left ventricle with mild hypokinesis of the mid inferior diaphragmatic segment with an estimated post procedure LVEF of 55%; left main coronary artery with 0-10% minimal luminal irregularities; LAD following the first diagonal branch with 75% concentric stenosis; LCx being a moderate nondominant vessel with 0-10% and 10-25% stenosis; RCA being a very large dominant vessel with proximal to mid 95-99% discrete stenosis and distal 95% somewhat irregular stenosis and the right PDA having proximal 50-75% stenosis in the right posterior lateral branch having 25-55% stenosis CT Surgery: [facility]: CABG with a JONES to the LAD and a sequential SVG to the posterior descending artery and the posterior lateral branch of the RCA; closure of an atrial septal defect Medical Necessity - Tobacco Use Smoking Status: Current every day smoker Assessment/Plan 1. Non-ST segment elevation [place] The patient does have a non-ST segment elevation OH based upon a combination of his presenting symptoms, his troponin I level changes, and his ECG changes. He has also undergone additional noninvasive evaluation with a transthoracic echocardiogram but is demonstrated a severe segmental left ventricular systolic dysfunction/severely decreased LVEF compatible with an underlying ischemic mediated cardiomyopathy. At the present time he will continue to be monitored. He will continue to have his cardiac enzymes and ECGs followed. He would continue medical management. This will include antiplatelet therapy with aspirin and clopidogrel/Plavix. Ideally would include other agents as needed and tolerated such as nitrates, beta-blockers, afterload reducing agents and lipid-lowering agents. However, based upon his clinical presentation/vital signs all these agents may not be able to be tolerated at one time. He will also need to be considered for reevaluation in the cardiac catheterization laboratory to reassess his coronary and graft anatomy for the need for additional revascularization therapy. This procedure and risks have been discussed with the patient's spouse who is agreeable to this approach. 2. CAD status post CABG The patient does have a history of CAD as noted above. He has undergone a previous evaluation and care as noted above. He has not had cardiovascular follow-up since his post CABG follow-up. He reportedly has discontinued his cardiovascular medications other than aspirin therapy. He now presents with the aforementioned clinical course and objective findings. He will continue to be monitored, continue medical therapy as tolerated, and undergo additional cardiovascular evaluation as deemed appropriate. 3. Ischemic mediated cardiomyopathy The patient does appear to have a significantly diminished LV systolic function/LVEF. The concern is this is related to progressive CAD and/or graft vessel disease. The patient will need to continue medical management. He will need continued noninvasive and invasive evaluation is scribed above. 4. Congestive heart failure: Systolic: Acute The patient presents with findings compatible with acute systolic mediated CHF based upon his clinical course and his objective findings including his chest x-ray. At the present time, based on concerns of his respiratory status, he was mechanically intubated/ventilated. The will continue combined cardiopulmonary evaluation and care. From a cardiovascular standpoint he will be treated medically including the addition of IV diuretics. IV diuretics will be advanced as tolerated to hopefully avoid any significant decline in intravascular volume which could compromise his cardiovascular hemodynamics but at the same time improve his underlying cardiopulmonary condition/volume status. 5. Atrial septal defect status post closure The patient does have a history of an underlying atrial septal defect. Per his surgical note it was closed. 6. Nonsustained wide complex tachycardia He has demonstrated episodes of nonsustained wide complex tachycardia. This can be turning for nonsustained ventricular tachycardia. This may be secondary to his underlying CAD process and diminished LV systolic function. His cardiac rate and rhythm are being monitored. He will be placed on antiarrhythmic therapy with IV amiodarone. His medications can be adjusted going forward as deemed appropriate. 7. Abdominal discomfort The patient has undergone evaluation as an outpatient for abdominal discomfort. His spouse states he underwent EGD which demonstrated a hiatal hernia. It is unclear whether his abdominal discomfort is related to his cardiovascular disease condition or a noncardiac condition including concerns of possible peripheral arterial occlusive disease leading to mesenteric ischemia, etc. He will need to be monitored for any such concerns. 8. Fever The patient has manifested a fever. It is unclear whether this is related to an underlying pulmonary disease process such as an underlying tracheobronchitis and/or pneumonia-possibly hidden on his chest x-ray by the underlying increased pulmonary vascularity, etc. He will need continued evaluation care per pulmonology/critical care medicine. This may include antibiotic therapy. Comment: The patient's case was discussed at length with the patient safia and Dr. Mitchell. This note was generated with [employer] dictation software. It may contain incorrect words, spelling, and punctuation that were not noted in checking the note before signing.
--- NOTE | 2018-04-12 16:42 | PN.CARD_ITS ---
Subjectve: The patient remains mechanically intubated and ventilated and sedated. His family member states that he has been ill over the last 6 months and more so over the last 2 months. He has apparently been complaining of shortness of breath/dyspnea, abdominal discomfort/bloating, and fatigue. If he has not used his inhalers he has had cough and phlegm-like production. Objective: Vital Signs Temp Pulse Resp BP Pulse Ox 100.3 F H 87 22 H 100/73 90 04/12/18 16:00 04/12/18 16:00 04/12/18 16:00 04/12/18 16:00 04/12/18 16:00 Oxygen Delivery Method Mechanical Ventilator Weight: 192 lb 3.889 oz Body Mass Index (BMI) 30.9 Intake and Output for Last 24 Hours 04/10/18 04/11/18 04/12/18 23:59 23:59 23:59 Intake Total 1258.2 / 1258.2 Output Total 325 / 325 Balance 933.2 / 933.2 Lungs: Rhonchi Cardiovascular: Regular Rhythm, Premature Ectopic Beats, Normal S1, Normal S2 Abdomen: Hypoactive Bowel Sounds Extremities: No edema 04/11/18 17:55: WBC 9.9, RBC 5.38, Hgb 12.7 L, Hct 41.1, MCV 76.4 L, MCH 23.6 L, MCHC 30.9 L, RDW 17.0 H, RDW Differential 47.2 H, Plt Count 307, MPV 8.7, Immature Gran % (Auto) 0.100, Neut % (Auto) 67.0, Lymph % (Auto) 23.2, [place] % (Auto) 7.0, Eos % (Auto) 2.1, Baso % (Auto) 0.6, Absolute Neuts (auto) 6.7, Total Counted Not Reportable 04/11/18 17:55: Sodium 135 L, Potassium 4.1, Chloride 100, Carbon Dioxide 29.0, Anion Gap 6, BUN 8, Creatinine 1.05, Est GFR (MDRD) Af Amer 92, Est GFR (MDRD) Non-Af 76, BUN/Creatinine Ratio 7.6 L, Glucose 88, Calcium 9.2, Total Bilirubin 0.80, Direct Bilirubin 0.24 04/11/18 17:55: Troponin I 1.810 H* 04/11/18 21:50: PT 15.1 H, INR 1.2, APTT 29.1 04/11/18 23:35: pH 7.32 L, Bicarbonate Actual 20.4 L, POC Total CO2 22, Base Excess -6 L, O2 Saturation 86 L, ABG pCO2 39.6, ABG pO2 56 L, Jeremías Test NA 04/11/18 23:50: Triglycerides 78 04/11/18 23:50: Troponin I 1.610 H* 04/12/18 02:34: pH 7.35, Bicarbonate Actual 25.2, POC Total CO2 27, Base Excess 0, O2 Saturation 94 L, ABG pCO2 46.0 H, ABG pO2 75, Jeremías Test NA 04/12/18 02:55: Troponin I 13.400 H* 04/12/18 04:10: WBC 11.1 H, RBC 4.93, Hgb 11.7 L, Hct 37.9 L, MCV 76.9 L, MCH 23.7 L, MCHC 30.9 L, RDW 17.0 H, RDW Differential 47.5 H, Plt Count 296, MPV 9.0 04/12/18 04:10: Sodium 138, Potassium 4.3, Chloride 105, Carbon Dioxide 25.0, Anion Gap 8, BUN 11, Creatinine 0.96, Est GFR (MDRD) Af Amer 102, Est GFR (MDRD) Non-Af 84, BUN/Creatinine Ratio 11.4, Glucose 125 H, Calcium 8.5, Total Bilirubin 0.80, Triglycerides 95, Cholesterol 152, LDL Cholesterol 106, VLDL Cholesterol 19, HDL Cholesterol 27 L 04/12/18 04:10: APTT 101.9 H* 04/12/18 06:20: Troponin I 39.900 H* 04/12/18 10:15: APTT 46.2 H Rhythm: Sinus rhythm; C; nonsustained wide complex tachycardia EKG: Sinus rhythm; PVCs; low voltage QRS in the limb leads; poor R wave progression; nonspecific ST segment abnormality ECHO: 04/12/2018 Interpretation Summary Moderately dilated left ventricle. The estimated ejection fraction is 15 %. Severe segmental systolic dysfunction (see wall motion). Stage 3 diastolic dysfunction. Compared to the previous there is a significant change Cardiac Cath: 01/10/2003: [facility]: Mild elevation of the left ventricular end-diastolic pressures, mild elevation of the intrapulmonary right heart pressures possibly related to the elevated LVED P, otherwise an underlying pulmonary component, and or relationship to the possible intracardiac shunting phenomena may not necessarily be excluded; O2 saturation suggesting a left to right anterior atrial shunt with an oxygen step up from the SVC of 56% to the RA of 66% and a Qp/Qs ratio of approximately 1.2; left ventricle with mil d hypokinesis of the mid inferior diaphragmatic segment with an estimated post procedure LVEF of 55%; left main coronary artery with 0-10% minimal luminal irregularities; LAD following the first diagonal branch with 75% concentric stenosis; LCx being a moderate nondominant vessel with 0-10% and 10-25% stenosis; RCA being a very large dominant vessel with proximal to mid 95-99% discrete stenosis and distal 95% somewhat irregular stenosis and the right PDA having proximal 50-75% stenosis in the right posterior lateral branch having 25- 55% stenosis CT Surgery: [facility]: CABG with a JONES to the LAD and a sequential SVG to the posterior descending artery and the posterior lateral branch of the RCA; closure of an atrial septal defect Medical Necessity - Tobacco Use Smoking Status: Current every day smoker Assessment/Plan 1. Non-ST segment elevation [place] The patient does have a non-ST segment elevation [place] based upon a combination of his presenting symptoms, his troponin I level changes, and his ECG changes. He has also undergone additional noninvasive evaluation with a transthoracic echocardiogram but is demonstrated a severe segmental left ventricular systolic dysfunction/severely decreased LVEF compatible with an underlying ischemic mediated cardiomyopathy. At the present time he will continue to be monitored. He will continue to have his cardiac enzymes and ECGs followed. He would continue medical management. This will include antiplatelet therapy with aspirin and clopidogrel/Plavix. Ideally would include other agents as needed and tolerated such as nitrates, beta-blockers, afterload reducing agents and lipid-lowering agents. However, based upon his clinical presentation/vital signs all these agents may not be able to be tolerated at one time. He will also need to be considered for reevaluation in the cardiac catheterization laboratory to reassess his coronary and graft anatomy for the need for additional revascularization therapy. This procedure and risks have been discussed with the patient's spouse who is agreeable to this approach. 2. CAD status post CABG The patient does have a history of CAD as noted above. He has undergone a previous evaluation and care as noted above. He has not had cardiovascular follow-up since his post CABG follow-up. He reportedly has discontinued his cardiovascular medications other than aspirin therapy. He now presents with the aforementioned clinical course and objective findings. He will continue to be monitored, continue medical therapy as tolerated, and undergo additional cardiovascular evaluation as deemed appropriate. 3. Ischemic mediated cardiomyopathy The patient does appear to have a significantly diminished LV systolic function/LVEF. The concern is this is related to progressive CAD and/or graft vessel disease. The patient will need to continue medical management. He will need continued noninvasive and invasive evaluation is scribed above. 4. Congestive heart failure: Systolic: Acute The patient presents with findings compatible with acute systolic mediated CHF based upon his clinical course and his objective findings including his chest x- ray. At the present time, based on concerns of his respiratory status, he was mechanically intubated/ventilated. The will continue combined cardiopulmonary evaluation and care. From a cardiovascular standpoint he will be treated medically including the addition of IV diuretics. IV diuretics will be advanced as tolerated to hopefully avoid any significant decline in intravascular volume which could compromise his cardiovascular hemodynamics but at the same time improve his underlying cardiopulmonary condition/volume status. 5. Atrial septal defect status post closure The patient does have a history of an underlying atrial septal defect. Per his surgical note it was closed. 6. Nonsustained wide complex tachycardia He has demonstrated episodes of nonsustained wide complex tachycardia. This can be turning for nonsustained ventricular tachycardia. This may be secondary to his underlying CAD process and diminished LV systolic function. His cardiac rate and rhythm are being monitored. He will be placed on antiarrhythmic therapy with IV amiodarone. His medications can be adjusted going forward as deemed appropriate. 7. Abdominal discomfort The patient has undergone evaluation as an outpatient for abdominal discomfort. His spouse states he underwent EGD which demonstrated a hiatal hernia. It is unclear whether his abdominal discomfort is related to his cardiovascular disease condition or a noncardiac condition including concerns of possible peripheral arterial occlusive disease leading to mesenteric ischemia, etc. He will need to be monitored for any such concerns. 8. Fever The patient has manifested a fever. It is unclear whether this is related to an underlying pulmonary disease process such as an underlying tracheobronchitis and/or pneumonia-possibly hidden on his chest x-ray by the underlying increased pulmonary vascularity, etc. He will need continued evaluation care per pulmonology/critical care medicine. This may include antibiotic therapy. Comment: The patient's case was discussed at length with the patient safia and Dr. Mitchell. This note was generated with [employer] dictation software. It may contain incorrect words, spelling, and punctuation that were not noted in checking the note before signing.
--- NOTE | 2018-04-12 16:55 | NURSING ---
See shift assessment for recent CPOT assessment
[2018-04-12 17:48] LABS: Partial Thromboplast Time 55.8 Seconds (24.1-36.2)
[2018-04-12] MEDS: HEPARIN/D5w 25,000 UNITS 25,000 UNITS/250 ML IV.SOLN. 12 UNITS IV (20:25)
--- NOTE | 2018-04-12 21:20 | RAD_ITS ---
STUDY: X-RAY CHEST REASON FOR EXAM: Male, 62 years old. Fever with worsening respiratory distress TECHNIQUE: AP portable COMPARISON: April 11, 2018 FINDINGS: Comparison with prior study demonstrates generalized interval improvement in the bilateral perihilar interstitial thickening and possible interstitial edema however there is increasing focal consolidation of the right lower lobe which may be consistent with evolving pneumonia.. Again noted are postsurgical changes status post median sternotomy and CABG with multiple tubes and lines in position. RAD/Chest 1 View (Portable) IMPRESSION: Increasing right lower lobe consolidation possibly pneumonic infiltrate. Electronically Signed: Ranjit David MD at 22:05 EDT , Service support ,
[2018-04-12] MEDS: Acetaminophen 650 MG/20 ML UDC GT (21:28)
[2018-04-12] MEDS: Famotidine 20 MG Tablet GT (21:28)
[2018-04-12 21:31] LABS: Mucous, Urine 0 SEEN /hpf (<or=2+)
[2018-04-12 21:50] LABS: Color, Urine Amber (Yellow); Glucose, Dipstick Normal (Normal); Ketone-Dipstick 5 mg/dl (Negative); Leukocyte Esterase-Dipstick 500 /ul (Negative); Nitrite-Dipstick Negative (Negative); Occult Blood-Urine 250 /ul (Negative); Protein-Dipstick 30 mg/dl (Negative); Urine Clarity Cloudy (Clear); Urine Urobilinogen 1 mg/dl (Normal)
[2018-04-12 21:56] LABS: Urine Bilirubin Dipstick 1 mg/dL (Negative)
[2018-04-12 21:57] LABS: Hyaline Cast 50-100 SEEN /lpf (0-5)
[2018-04-12 21:59] LABS: Squamous Epithelial Cells - UA 0-5 SEEN /hpf (0-5)
[2018-04-12 22:01] LABS: Red Blood Cells-Urine 10-25 SEEN /hpf (0-5); Transitional Epithelial - Ur 0-5 SEEN /hpf (0-5)
[2018-04-12 22:03] LABS: Bacteria 1+ /hpf (None Seen)
[2018-04-12 22:04] LABS: White Blood Cells 25-50 SEEN /hpf (0-5)
[2018-04-12 23:31] LABS: Bedside Glucose 144 mg/dL (70-110)
[2018-04-12] MEDS: 0.9% NaCl IVPB Med Flush (250 mL) 15 ML IV (23:34)
[2018-04-12] MEDS: Ceftriaxone 1 GM/50 ML BAG IV (23:34)
--- NOTE | 2018-04-12 23:49 | NURSING ---
First CHG bath given, pt clipped for hair removal of Bilateral wrists and groins, linen changed. Tube feed held for procedure.
[2018-04-13] VITALS (27 sets, daily range): BP systolic 68–114; BP diastolic 47–80; PULSE 69–89; RESP 12–20; TEMP 37.1–38.4; O2SAT 87–97
[2018-04-13 00:06] LABS: Partial Thromboplast Time 210.8 Seconds (24.1-36.2)
--- NOTE | 2018-04-13 00:11 | NURSING ---
Per results of PTT >210, Heparin gtt to stop for two hours. Order to stop drip at 01:[address] Took down Heparin gtt.
[2018-04-13] MEDS: Ipratropium/Albuterol Sulfate 3 ML AMPUL.NEB INHALATION ×2 (01:27→06:27)
[2018-04-13] MEDS: 0.9% NaCl Peripheral Flush Adult/Peds IV (04:07)
[2018-04-13 04:32] LABS: Partial Thromboplast Time 34.9 Seconds (24.1-36.2)
[2018-04-13 05:00] LABS: Absolute Neutrophil Count 18.5 X10^3/uL (2.0-7.7); Basophil# 0.04 X10^3/uL; Basophil% 0.2 % (0-1); Eosinophil# 0.01 X10^3/uL; Hemoglobin 12.2 g/dl (13.0-16.5); Lymphocyte % 5.2 % (19-41); Mean Corp Hgb Conc 30.5 g/gl (32-36); Mean Corpuscular Hgb 23.7 pg (27.0-32.0); Mean Corpuscular Volume 77.8 fL (80-94); Mean Platelet Vol. 9.4 fl (6.2-12.0); Monocyte% 6.6 % (0-10); Neutrophil # 18.46 X10^3/uL (2.7-7.7); Neutrophil % 87.8 % (47-70); Platelet Count 291 K/mm3 (150-450); RBC Distribution Width CV 17.1 % (11.6-14.6); RBC Distribution Width SD 48.5 fl (35.1-43.9); Red Blood Count 5.14 M/mm3 (4.6-6.2); White Blood Count 21.1 K/mm3 (4.4-11.0)
[2018-04-13 05:08] LABS: Anion Gap 11 (5-15); BUN 20 mg/dL (7-18); BUN/Creat Ratio 10.7 RATIO (10-20); Calcium,Total 8.3 mg/dL (8.5-10.1); Chloride 104 mmol/L (98-107); Creatinine, Serum 1.87 mg/dL (0.70-1.30); EST Glomerular Filtration Rate 39 mL/min (>60); Est Glom Filt Rate - Afr Amer 47 mL/min (>60); Estimated Creatinine Clearance 36.96 ml/min; Glucose 140 mg/dL (74-106); Magnesium 2.3 mg/dL (1.6-2.6); Potassium 5.4 mmol/L (3.5-5.1); Sodium Level 136 mmol/L (136-145)
[2018-04-13 05:09] LABS: POSITIVE COUNT NO; POSITIVE DIFFERENTIAL NO; POSITIVE MORPHOLOGY NO
[2018-04-13] MEDS: CHLORHEXIDINE GLUC 2% CLOTH 1 EACH TOWELETTE TOPICAL (05:28)
[2018-04-13] MEDS: fentaNYL drip 100 ML 5 MCG IV (05:59)
--- NOTE | 2018-04-13 06:00 | RAD_ITS ---
STUDY: X-RAY CHEST REASON FOR EXAM: Male, 62 years old. SOB TECHNIQUE: Single frontal view of the chest. COMPARISON: 04/12/2018 FINDINGS: Median sternotomy wires and CABG clips. Stable support devices. Progressing right perihilar and basilar alveolar disease. Improving left midlung and basilar atelectasis. There is no demonstrated pleural abnormality. Stable cardiac silhouette. Normal mediastinum and henry. Normal visualized pulmonary arteries. Normal visualized aortic arch and descending thoracic aorta. Normal visualized thoracic spine. Normal visualized ribs, clavicles, and shoulders. There is no demonstrated abnormality of the visualized soft tissue structures of the upper abdomen. RAD/Chest 1 View (Portable) IMPRESSION: Progressing right perihilar and basilar alveolar disease. Improving left midlung and basilar atelectasis. Electronically Signed: Yvon Wilder MD at 5:15 EDT Tel , Service support ,
--- NOTE | 2018-04-13 06:00 | EKG12_ITS ---
Test Reason : EKG CHANGES Blood Pressure : / mmHG Vent. Rate : 099 BPM Atrial Rate : 099 BPM P-R Int : 176 ms QRS Dur : 154 ms QT Int : 420 ms P-R-T Axes : 094 018 137 degrees QTc Int : 539 ms Normal sinus rhythm Non-specific intra-ventricular conduction block Lateral leads Abnormal ECG When compared with ECG of 11-APR-2018 21:12, MANUAL COMPARISON REQUIRED, DATA IS UNCONFIRMED Confirmed by WENDY MALDONADO, STEFAN ([id number]), offline editor ADAN GUZMAN ([id number] on 04/18/2018 11:05:11 AM Referred By: Confirmed By:STEFAN NGUYEN MD
--- NOTE | 2018-04-13 06:23 | PCM.RX.CS ---
Consult Pharmacy has been consulted to manage selected antiobiotic: Vancomycin Type of Consult: New start Labs: Sodium 136 mmol/L (136-145) 04/13/18 04:00 Potassium 5.4 mmol/L (3.5-5.1) H 04/13/18 04:00 Chloride 104 mmol/L (98-107) 04/13/18 04:00 Carbon Dioxide 21.0 mmol/L (21.0-32.0) 04/13/18 04:00 Anion Gap 11 (5-15) 04/13/18 04:00 BUN 20 mg/dL (7-18) H 04/13/18 04:00 Creatinine 1.87 mg/dL (0.70-1.30) H 04/13/18 04:00 Est GFR (MDRD) Af Amer 47 mL/min (>60) L 04/13/18 04:00 Est GFR (MDRD) Non-Af 39 mL/min (>60) L 04/13/18 04:00 BUN/Creatinine Ratio 10.7 RATIO (10-20) 04/13/18 04:00 Glucose 140 mg/dL (74-106) H 04/13/18 04:00 Microbiology: Microbiology 04/12/18 13:25 Sputum, Induced/[place]uk[place] Gram Stain - Final Estimated Creatinine Clearance: 36.96 Goal Trough: 10-15 mcg/mL Pharmacy Plan for Drug Dosing: Pharmacy Service will continue to monitor and adjust dosing as required. Medications Vancomycin HCl 1,250 mg/ (Sodium Chloride) 275 mls @ 167 mls/hr IV Q24H JOSEFINA Discontinued Medications Vancomycin HCl 1,500 mg/ (Sodium Chloride) 530 mls @ 250 mls/hr IV X1 ONE Stop: 04/13/18 01:37 Last Admin: 04/12/18 23:48 Dose: 250 mls/hr Follow-Up Labs: Trough Vancomycin Labs to be done on [date and time ordered]: 04/15 @ 0000
[2018-04-13] MEDS: Clopidogrel Bisulfate 75 MG Tablet GT (06:52)
[2018-04-13] MEDS: Aspirin 325 MG Tablet GT (06:52)
[2018-04-13] MEDS: 0.9% Normal Saline 1,000 ML 75 ML IV (06:52)
--- NOTE | 2018-04-13 06:54 | PCM.PN.INT ---
Subjective: Patient with significant decompensation overnight. Patient did develop fever and worsening hypoxemia. Patient has been increased to 12 of PEEP and still requiring 70% FiO2 to maintain saturations. Patient was initiated on amiodarone and antibiotics overnight. Patient is scheduled for heart catheterization this morning. Patient did get initiated on tube feeds yesterday and reportedly tolerated trophic feeds well. Objective: Chest x-ray was personally reviewed. This shows a developing right lower lobe infiltrate with improvement on the left side. General: - - RASS -2. Good vent synchrony noted. Appears older than stated age. Obese. HEENT: Atraumatic, PERRLA, EOMI, Normocephalic, - - No scleral icterus or injection noted. Oral: Moist Mucosa, No Gingival or Mucosal Lesions/ Ulcerations Neck: Supple, No JVD, No Nodes, Trachea Midline Lungs: No rales, Diminished, Rhonchi - Right base, Wheezes Cardiovascular: Regular rate, Regular Rhythm, Normal S1, Normal S2, No murmurs, No rub noted, No Gallop Abdomen: Bowel Sounds Present, Soft, Non Tender, Distended, Obese Extremities: No cyanosis, No edema, Capillary Refill Less than 3 Seconds Skin: No rashes, No breakdown Musculoskeletal: No Tenderness to Palpation of Joints or Extremities Lymphatic: No Cervical, Supraclavicular, or Inguinal Adenopathy Neurological: Cranial nerves II-XII grossly intact, Neuro grossly intact Psych/Mental Status: Flat Affect Vital Signs Temp Pulse Resp BP Pulse Ox 37.6 C H 74 12 95/72 93 04/13/18 06:00 04/13/18 06:00 04/13/18 06:00 04/13/18 06:00 04/13/18 06:00 Oxygen Delivery Method Mechanical Ventilator Weight: 87.9 kg Body Mass Index (BMI) 30.9 Intake and Output for Last 24 Hours 04/11/18 04/12/18 04/13/18 23:59 23:59 23:59 Intake Total 2513.3 / 2513.3 742.1 / 742.1 Output Total 640 / 640 30 / 30 Balance 1873.3 / 1873.3 712.1 / 712.1 Labs (Last 48 Hours) 04/11/18 04/11/18 04/11/18 17:55 17:55 17:55 WBC 9.9 RBC 5.38 Hgb 12.7 L Hct 41.1 MCV 76.4 L MCH 23.6 L MCHC 30.9 L RDW 17.0 H RDW Differential 47.2 H Plt Count 307 MPV 8.7 Immature Gran % (Auto) 0.100 Neut % (Auto) 67.0 Lymph % (Auto) 23.2 [place] % (Auto) 7.0 Eos % (Auto) 2.1 Baso % (Auto) 0.6 Absolute Neuts (auto) 6.7 Absolute Lymphs (auto) 2.30 Total Counted Not Reportable Platelet Estimate ADEQUATE Hypochromasia 2+ Ovalocytes 1+ PT INR APTT Specimen Type Sample Site pH Bicarbonate Actual POC Total CO2 Base Excess O2 Saturation O2 % ABG pCO2 ABG pO2 Jeremías Test Respiration Rate O2 Delivery Device Minute Volume Vent Mode Tidal Volume POC PEEP Blood Gas Notified Whom Sodium 135 L Potassium 4.1 Chloride 100 Carbon Dioxide 29.0 Anion Gap 6 BUN 8 Creatinine 1.05 Estim Creat Clear Calc 65.83 Est GFR (MDRD) Af Amer 92 Est GFR (MDRD) Non-Af 76 BUN/Creatinine Ratio 7.6 L Glucose 88 Calcium 9.2 Magnesium Total Bilirubin 0.80 Direct Bilirubin 0.24 AST 20 ALT 16 Alkaline Phosphatase 127 H Total Creatine Kinase Troponin I 1.810 H* Total Protein 8.2 Albumin 3.8 Globulin 4.4 H Albumin/Globulin Ratio Triglycerides Cholesterol LDL Cholesterol VLDL Cholesterol HDL Cholesterol Lipase 113 Urine Color Urine Clarity Urine pH Ur Specific Anthony Urine Protein Urine Glucose (UA) Urine Ketones Urine Occult Blood Urine Nitrite Urine Bilirubin Urine Urobilinogen Ur Leukocyte Esterase Urine RBC Urine WBC Ur Squamous Epith Cells Ur Transition Epith Cell Urine Bacteria Hyaline Casts Urine Mucus MRSA (PCR) POC Glucose 04/11/18 04/11/18 04/11/18 21:50 23:35 23:50 WBC RBC Hgb Hct MCV MCH MCHC RDW RDW Differential Plt Count MPV Immature Gran % (Auto) Neut % (Auto) Lymph % (Auto) [place] % (Auto) Eos % (Auto) Baso % (Auto) Absolute Neuts (auto) Absolute Lymphs (auto) Total Counted Platelet Estimate Hypochromasia Ovalocytes PT 15.1 H INR 1.2 APTT 29.1 Specimen Type ART Sample Site R Brachial pH 7.32 L Bicarbonate Actual 20.4 L POC Total CO2 22 Base Excess -6 L O2 Saturation 86 L O2 % 60 ABG pCO2 39.6 ABG pO2 56 L Jeremías Test NA Respiration Rate 26 O2 Delivery Device Vent Minute Volume 14.00 Vent Mode A-C Tidal Volume 500 POC PEEP 5 Blood Gas Notified Whom TA MALDONADO Sodium Potassium Chloride Carbon Dioxide Anion Gap BUN Creatinine Estim Creat Clear Calc Est GFR (MDRD) Af Amer Est GFR (MDRD) Non-Af BUN/Creatinine Ratio Glucose Calcium Magnesium Total Bilirubin Direct Bilirubin AST ALT Alkaline Phosphatase Total Creatine Kinase 119 Troponin I Total Protein Albumin Globulin Albumin/Globulin Ratio Triglycerides 78 Cholesterol LDL Cholesterol VLDL Cholesterol HDL Cholesterol Lipase Urine Color Urine Clarity Urine pH Ur Specific Anthony Urine Protein Urine Glucose (UA) Urine Ketones Urine Occult Blood Urine Nitrite Urine Bilirubin Urine Urobilinogen Ur Leukocyte Esterase Urine RBC Urine WBC Ur Squamous Epith Cells Ur Transition Epith Cell Urine Bacteria Hyaline Casts Urine Mucus MRSA (PCR) POC Glucose 04/11/18 04/12/18 04/12/18 23:50 02:34 02:55 WBC RBC Hgb Hct MCV MCH MCHC RDW RDW Differential Plt Count MPV Immature Gran % (Auto) Neut % (Auto) Lymph % (Auto) [place] % (Auto) Eos % (Auto) Baso % (Auto) Absolute Neuts (auto) Absolute Lymphs (auto) Total Counted Platelet Estimate Hypochromasia Ovalocytes PT INR APTT Specimen Type ART Sample Site R Brachial pH 7.35 Bicarbonate Actual 25.2 POC Total CO2 27 Base Excess 0 O2 Saturation 94 L O2 % 50 ABG pCO2 46.0 H ABG pO2 75 Jeremías Test NA Respiration Rate 12 O2 Delivery Device Vent Minute Volume 6.00 Vent Mode A-C Tidal Volume 500 POC PEEP 5 Blood Gas Notified Whom TA MALDONADO Sodium Potassium Chloride Carbon Dioxide Anion Gap BUN Creatinine Estim Creat Clear Calc Est GFR (MDRD) Af Amer Est GFR (MDRD) Non-Af BUN/Creatinine Ratio Glucose Calcium Magnesium Total Bilirubin Direct Bilirubin AST ALT Alkaline Phosphatase Total Creatine Kinase Troponin I 1.610 H* 13.400 H* Total Protein Albumin Globulin Albumin/Globulin Ratio Triglycerides Cholesterol LDL Cholesterol VLDL Cholesterol HDL Cholesterol Lipase Urine Color Urine Clarity Urine pH Ur Specific Anthony Urine Protein Urine Glucose (UA) Urine Ketones Urine Occult Blood Urine Nitrite Urine Bilirubin Urine Urobilinogen Ur Leukocyte Esterase Urine RBC Urine WBC Ur Squamous Epith Cells Ur Transition Epith Cell Urine Bacteria Hyaline Casts Urine Mucus MRSA (PCR) POC Glucose 04/12/18 04/12/18 04/12/18 04:10 04:10 04:10 WBC 11.1 H RBC 4.93 Hgb 11.7 L Hct 37.9 L MCV 76.9 L MCH 23.7 L MCHC 30.9 L RDW 17.0 H RDW Differential 47.5 H Plt Count 296 MPV 9.0 Immature Gran % (Auto) Neut % (Auto) Lymph % (Auto) [place] % (Auto) Eos % (Auto) Baso % (Auto) Absolute Neuts (auto) Absolute Lymphs (auto) Total Counted Platelet Estimate Hypochromasia Ovalocytes PT INR APTT 101.9 H* Specimen Type Sample Site pH Bicarbonate Actual POC Total CO2 Base Excess O2 Saturation O2 % ABG pCO2 ABG pO2 Jeremías Test Respiration Rate O2 Delivery Device Minute Volume Vent Mode Tidal Volume POC PEEP Blood Gas Notified Whom Sodium 138 Potassium 4.3 Chloride 105 Carbon Dioxide 25.0 Anion Gap 8 BUN 11 Creatinine 0.96 Estim Creat Clear Calc 72.00 Est GFR (MDRD) Af Amer 102 Est GFR (MDRD) Non-Af 84 BUN/Creatinine Ratio 11.4 Glucose 125 H Calcium 8.5 Magnesium Total Bilirubin 0.80 Direct Bilirubin AST 99 H ALT 23 Alkaline Phosphatase 110 Total Creatine Kinase Troponin I Total Protein 7.1 Albumin 3.2 Globulin 3.9 Albumin/Globulin Ratio 0.8 L Triglycerides 95 Cholesterol 152 LDL Cholesterol 106 VLDL Cholesterol 19 HDL Cholesterol 27 L Lipase Urine Color Urine Clarity Urine pH Ur Specific Anthony Urine Protein Urine Glucose (UA) Urine Ketones Urine Occult Blood Urine Nitrite Urine Bilirubin Urine Urobilinogen Ur Leukocyte Esterase Urine RBC Urine WBC Ur Squamous Epith Cells Ur Transition Epith Cell Urine Bacteria Hyaline Casts Urine Mucus MRSA (PCR) POC Glucose 04/12/18 04/12/18 04/12/18 06:20 10:15 17:30 WBC RBC Hgb Hct MCV MCH MCHC RDW RDW Differential Plt Count MPV Immature Gran % (Auto) Neut % (Auto) Lymph % (Auto) [place] % (Auto) Eos % (Auto) Baso % (Auto) Absolute Neuts (auto) Absolute Lymphs (auto) Total Counted Platelet Estimate Hypochromasia Ovalocytes PT INR APTT 46.2 H 55.8 H Specimen Type Sample Site pH Bicarbonate Actual POC Total CO2 Base Excess O2 Saturation O2 % ABG pCO2 ABG pO2 Jeremías Test Respiration Rate O2 Delivery Device Minute Volume Vent Mode Tidal Volume POC PEEP Blood Gas Notified Whom Sodium Potassium Chloride Carbon Dioxide Anion Gap BUN Creatinine Estim Creat Clear Calc Est GFR (MDRD) Af Amer Est GFR (MDRD) Non-Af BUN/Creatinine Ratio Glucose Calcium Magnesium Total Bilirubin Direct Bilirubin AST ALT Alkaline Phosphatase Total Creatine Kinase Troponin I 39.900 H* Total Protein Albumin Globulin Albumin/Globulin Ratio Triglycerides Cholesterol LDL Cholesterol VLDL Cholesterol HDL Cholesterol Lipase Urine Color Urine Clarity Urine pH Ur Specific Anthony Urine Protein Urine Glucose (UA) Urine Ketones Urine Occult Blood Urine Nitrite Urine Bilirubin Urine Urobilinogen Ur Leukocyte Esterase Urine RBC Urine WBC Ur Squamous Epith Cells Ur Transition Epith Cell Urine Bacteria Hyaline Casts Urine Mucus MRSA (PCR) POC Glucose 04/12/18 04/12/18 04/12/18 17:30 21:10 23:12 WBC RBC Hgb Hct MCV MCH MCHC RDW RDW Differential Plt Count MPV Immature Gran % (Auto) Neut % (Auto) Lymph % (Auto) [place] % (Auto) Eos % (Auto) Baso % (Auto) Absolute Neuts (auto) Absolute Lymphs (auto) Total Counted Platelet Estimate Hypochromasia Ovalocytes PT INR APTT Specimen Type Sample Site pH Bicarbonate Actual POC Total CO2 Base Excess O2 Saturation O2 % ABG pCO2 ABG pO2 Jeremías Test Respiration Rate O2 Delivery Device Minute Volume Vent Mode Tidal Volume POC PEEP Blood Gas Notified Whom Sodium Potassium Chloride Carbon Dioxide Anion Gap BUN Creatinine Estim Creat Clear Calc Est GFR (MDRD) Af Amer Est GFR (MDRD) Non-Af BUN/Creatinine Ratio Glucose Calcium Magnesium Total Bilirubin Direct Bilirubin AST ALT Alkaline Phosphatase Total Creatine Kinase Troponin I 61.300 H* Total Protein Albumin Globulin Albumin/Globulin Ratio Triglycerides Cholesterol LDL Cholesterol VLDL Cholesterol HDL Cholesterol Lipase Urine Color Itzel Urine Clarity Cloudy Urine pH 6.0 Ur Specific Anthony 1.020 Urine Protein 30 H Urine Glucose (UA) Normal Urine Ketones 5 H Urine Occult Blood 250 H Urine Nitrite Negative Urine Bilirubin 1 H Urine Urobilinogen 1 H Ur Leukocyte Esterase 500 H Urine RBC 10-25 SEEN Urine WBC 25-50 SEEN Ur Squamous Epith Cells 0-5 SEEN Ur Transition Epith Cell 0-5 SEEN Urine Bacteria 1+ Hyaline Casts 50-100 SEEN Urine Mucus 0 SEEN MRSA (PCR) POC Glucose 144 H 04/12/18 04/12/18 04/13/18 23:30 23:30 04:00 WBC 21.1 H RBC 5.14 Hgb 12.2 L Hct 40.0 MCV 77.8 L MCH 23.7 L MCHC 30.5 L RDW 17.1 H RDW Differential 48.5 H Plt Count 291 MPV 9.4 Immature Gran % (Auto) 0.200 Neut % (Auto) 87.8 H Lymph % (Auto) 5.2 L [place] % (Auto) 6.6 Eos % (Auto) 0.0 Baso % (Auto) 0.2 Absolute Neuts (auto) 18.5 H Absolute Lymphs (auto) 1.10 Total Counted Not Reportable Platelet Estimate Hypochromasia Ovalocytes PT INR APTT 210.8 H* Specimen Type Sample Site pH Bicarbonate Actual POC Total CO2 Base Excess O2 Saturation O2 % ABG pCO2 ABG pO2 Jeremías Test Respiration Rate O2 Delivery Device Minute Volume Vent Mode Tidal Volume POC PEEP Blood Gas Notified Whom Sodium Potassium Chloride Carbon Dioxide Anion Gap BUN Creatinine Estim Creat Clear Calc Est GFR (MDRD) Af Amer Est GFR (MDRD) Non-Af BUN/Creatinine Ratio Glucose Calcium Magnesium Total Bilirubin Direct Bilirubin AST ALT Alkaline Phosphatase Total Creatine Kinase Troponin I 72.100 H* Total Protein Albumin Globulin Albumin/Globulin Ratio Triglycerides Cholesterol LDL Cholesterol VLDL Cholesterol HDL Cholesterol Lipase Urine Color Urine Clarity Urine pH Ur Specific Anthony Urine Protein Urine Glucose (UA) Urine Ketones Urine Occult Blood Urine Nitrite Urine Bilirubin Urine Urobilinogen Ur Leukocyte Esterase Urine RBC Urine WBC Ur Squamous Epith Cells Ur Transition Epith Cell Urine Bacteria Hyaline Casts Urine Mucus MRSA (PCR) POC Glucose 04/13/18 04/13/18 04/13/18 04:00 04:00 06:40 WBC RBC Hgb Hct MCV MCH MCHC RDW RDW Differential Plt Count MPV Immature Gran % (Auto) Neut % (Auto) Lymph % (Auto) [place] % (Auto) Eos % (Auto) Baso % (Auto) Absolute Neuts (auto) Absolute Lymphs (auto) Total Counted Platelet Estimate Hypochromasia Ovalocytes PT INR APTT 34.9 Specimen Type Sample Site pH Bicarbonate Actual POC Total CO2 Base Excess O2 Saturation O2 % ABG pCO2 ABG pO2 Jeremías Test Respiration Rate O2 Delivery Device Minute Volume Vent Mode Tidal Volume POC PEEP Blood Gas Notified Whom Sodium 136 Potassium 5.4 H Chloride 104 Carbon Dioxide 21.0 Anion Gap 11 BUN 20 H Creatinine 1.87 H Estim Creat Clear Calc 36.96 Est GFR (MDRD) Af Amer 47 L Est GFR (MDRD) Non-Af 39 L BUN/Creatinine Ratio 10.7 Glucose 140 H Calcium 8.3 L Magnesium 2.3 Total Bilirubin Direct Bilirubin AST ALT Alkaline Phosphatase Total Creatine Kinase Troponin I 81.200 H* Total Protein Albumin Globulin Albumin/Globulin Ratio Triglycerides Cholesterol LDL Cholesterol VLDL Cholesterol HDL Cholesterol Lipase Urine Color Urine Clarity Urine pH Ur Specific Anthony Urine Protein Urine Glucose (UA) Urine Ketones Urine Occult Blood Urine Nitrite Urine Bilirubin Urine Urobilinogen Ur Leukocyte Esterase Urine RBC Urine WBC Ur Squamous Epith Cells Ur Transition Epith Cell Urine Bacteria Hyaline Casts Urine Mucus MRSA (PCR) Pending POC Glucose Microbiology 04/12/18 13:25 Sputum, Induced/Lukens Gram Stain - Final Clinical Impression(s) from Imaging Studies Chest X-Ray 04/12/18 21:20 IMPRESSION: Increasing right lower lobe consolidation possibly pneumonic infiltrate. Electronically Signed: Ranjit David MD at 22:05 EDT , Service support , Chest X-Ray 04/13/18 06:00 IMPRESSION: Progressing right perihilar and basilar alveolar disease. Improving left midlung and basilar atelectasis. Electronically Signed: Yvon Wilder MD at 5:15 EDT Tel , Service support , Medical Necessity - Tobacco Use Smoking Status: Current every day smoker Assessment/Plan All Active Problems CAD (coronary artery disease) (Acute) Chest pain (Acute) Abdominal distention (Acute) Shortness of breath (Acute) RECOMMENDATIONS: 1. Continue heparin drip 2. May need to add diuretic therapy if okay with cardiology 3. Propofol and fentanyl for vent synchrony 4. Spontaneous breathing trial and awakening trials per protocol IMPRESSIONS: 1. Acute hypoxic respiratory failure secondary to CHF secondary to non-ST elevation TX Chest x-ray shows improvement in infiltrate on the left side, but increased consolidation of the right lower lobe. Patient did have a fever and leukocytosis overnight. Pattern is consistent with an aspiration pneumonia, but patient does not have a reported history of aspiration. Patient did have GI issues on presentation. Patient was initiated on empiric antibiotics. MRSA swab has been ordered. Vancomycin in the interim. Patient is to have a heart catheterization this morning. Anticoagulation is currently on hold. 2. Abdominal pain/bloating Clinical suspicion for small and large bowel ileus secondary to decreased perfusion. Patient does have a history of vascular disease and is not been compliant with medical therapy. Patient may require an angiography in the future for evaluation. Patient tolerated tube feeds until midnight at trophic levels. Likely reinitiate tube feeds following heart catheterization this morning. 3. Acute kidney injury Clinical suspicion for prerenal etiology secondary to acute systolic congestive heart failure secondary to non-ST elevation TX and severe sepsis. Patient has received some fluids. Patient is to get a contrast load today, so we will give IV fluids. May need to use Lasix therapy to keep euvolemic. 4. Probable COPD exacerbation secondary to right lower lobe pneumonia Although not verified, patient does have some wheezing on exam today. Patient appears to have a right lower lobe pneumonia. Patient will be initiated on empiric steroid therapy in addition to bronchodilators. Patient may require mucolytic's. Continue aggressive pulmonary toileting. 5. Obesity/hypertension/poor compliance Complicates care, management, recovery and prognosis. Patient is never had pulmonary function tests for quantification and clarification of lung function. Will put on empiric DuoNeb therapy. Monitor blood pressure this patient is currently on propofol. TIME: 55 minutes critical care time spent addressing patient's acute hypoxic respiratory failure, CHF, review of all data and collaboration with care team (5:40 AM to 7 AM) Code Visit [id number]: [id number] Critical care first hour
--- NOTE | 2018-04-13 07:23 | PN_ITS ---
Subjective: Fever overnight, T-max 100.7 Fahrenheit. Patient awake and opens eyes. Blood pressure on lower side but map about 70-80 mmHg. Hypoxia worsened. FiO2 was increased to 70% from 50% and PEEP to 12 from 5 maintain pulse ox about 90% Troponin very high 81. Vitals/I&O's: Vital Signs Temp Pulse Resp BP Pulse Ox 99.7 F H 74 12 95/72 93 04/13/18 06:00 04/13/18 06:00 04/13/18 06:00 04/13/18 06:00 04/13/18 06:00 Oxygen Delivery Method Mechanical Ventilator Weight: 193 lb 12.581 oz Body Mass Index (BMI) 30.9 Intake and Output for Last 24 Hours 04/11/18 04/12/18 04/13/18 23:59 23:59 23:59 Intake Total 2513.3 / 2513.3 742.1 / 742.1 Output Total 640 / 640 30 / 30 Balance 1873.3 / 1873.3 712.1 / 712.1 General: - - Intubated HEENT: Atraumatic, PERRLA, EOMI, Normocephalic Oral: - - PT and OT to Neck: Negative Carotid Bruits Lungs: Diminished, Rhonchi, - - On vent support Cardiovascular: Regular rate, Regular Rhythm, Normal S1, Normal S2, No murmurs Abdomen: Bowel Sounds Present, Soft, Non Tender, Non-Distended Extremities: No clubbing, No cyanosis, No edema Skin: No rashes, No breakdown Musculoskeletal: No Tenderness to Palpation of Joints or Extremities, Arthritic Changes Neurological: - - On sedative Microbiology Past 72 Hours 04/12/18 13:25 Sputum, Induced/Lukens Gram Stain - Final Laboratory Results 04/12/18 10:15: APTT 46.2 H 04/12/18 17:30: APTT 55.8 H 04/12/18 17:30: Troponin I 61.300 H* 04/12/18 21:10: Urine Color Itzel, Urine Clarity Cloudy, Urine pH 6.0, Ur Specific [place] 1.020, Urine Protein 30 H, Urine Glucose (UA) Normal, Urine Ketones 5 H, Urine Occult Blood 250 H, Urine Nitrite Negative, Urine Bilirubin 1 H, Urine Urobilinogen 1 H, Ur Leukocyte Esterase 500 H, Urine RBC 10-25 SEEN, Urine WBC 25-50 SEEN, Ur Squamous Epith Cells 0-5 SEEN, Ur Transition Epith Cell 0-5 SEEN, Urine Bacteria 1+, Hyaline Casts 50-100 SEEN, Urine Mucus 0 SEEN 04/12/18 23:12: POC Glucose 144 H 04/12/18 23:30: APTT 210.8 H* 04/12/18 23:30: Troponin I 72.100 H* 04/13/18 04:00: WBC 21.1 H, RBC 5.14, Hgb 12.2 L, Hct 40.0, MCV 77.8 L, MCH 23.7 L, MCHC 30.5 L, RDW 17.1 H, RDW Differential 48.5 H, Plt Count 291, MPV 9.4, Immature Gran % (Auto) 0.200, Neut % (Auto) 87.8 H, Lymph % (Auto) 5.2 L, [place] % (Auto) 6.6, Eos % (Auto) 0.0, Baso % (Auto) 0.2, Absolute Neuts (auto) 18.5 H, Absolute Lymphs (auto) 1.10, Total Counted Not Reportable 04/13/18 04:00: Sodium 136, Potassium 5.4 H, Chloride 104, Carbon Dioxide 21.0, Anion Gap 11, BUN 20 H, Creatinine 1.87 H, Estim Creat Clear Calc 36.96, Est GFR (MDRD) Af Amer 47 L, Est GFR (MDRD) Non-Af 39 L, BUN/Creatinine Ratio 10.7, Glucose 140 H, Calcium 8.3 L, Magnesium 2.3, Troponin I 81.200 H* 04/13/18 04:00: APTT 34.9 04/13/18 06:40: MRSA (PCR) Pending Current Medications Acetaminophen (Tylenol Liquid) 650 mg GT Q6H PRN PRN PRN Reason: FEVER Last Admin: 04/12/18 21:28 Dose: 650 mg Albuterol/Ipratropium (Duoneb) 3 ml INHALATION Q6H.RT JOSEFINA Last Admin: 04/13/18 06:27 Dose: 3 ml Aspirin (Aspirin) 325 mg GT DAILY JOSEFINA Last Admin: 04/13/18 06:52 Dose: 325 mg Chlorhexidine Gluconate () 15 ml PO BID JOSEFINA Last Admin: 04/12/18 21:28 Dose: 15 ml Chlorhexidine Gluconate () 1 each TOPICAL DAILY [facility] Last Admin: 04/13/18 05:28 Dose: 1 each Clopidogrel Bisulfate (Plavix) 75 mg GT DAILY [facility] Last Admin: 04/13/18 06:52 Dose: 75 mg Famotidine (Pepcid) 20 mg GT BID [facility] Last Admin: 04/12/18 21:28 Dose: 20 mg Heparin Sodium (Porcine) (Heparin Na) 0 unit IV UD PRN; Protocol Last Admin: 04/12/18 11:14 Dose: 1,000 unit Heparin Sodium/Dextrose () 25,000 units in 250 mls @ 12 mls/hr IV .[id number] [facility]; Protocol Last Admin: 04/12/18 20:25 Dose: 12 mls/hr Propofol (Diprivan) 1,000 mg in 100 mls @ 2.595 mls/hr CONT INF .Q12H [facility]; Protocol Last Admin: 04/12/18 22:46 Dose: Not Given Fentanyl () 100 mls @ 5 mls/hr IV .Q20H [facility] Last Admin: 04/13/18 05:59 Dose: 5 mls/hr Sodium Chloride () 250 mls @ 15 mls/hr IV .[id number] PRN PRN Reason: SALINE FLUSH Last Admin: 04/12/18 23:34 Dose: 15 mls/hr Enteral Nutritional Formula (Vital Af 1.2 Mike Liquid) 1,000 mls @ 70 mls/hr GT .[id number] [facility] Last Admin: 04/13/18 02:24 Dose: Not Given Amiodarone HCl 360 mg/ (Dextrose) 200 mls @ 16.67 mls/hr CONT INF .Q12H1M [facility] Stop: 04/13/18 15:39 Last Admin: 04/12/18 22:46 Dose: 16.67 mls/hr Sodium Chloride () 1,000 mls @ 15 mls/hr IV .Q48H [facility] Last Admin: 04/12/18 16:59 Dose: Not Given Ceftriaxone Sodium (Rocephin) 1 gm in 50 mls @ 100 mls/hr IV DAILY@2200 [facility] Last Admin: 04/12/18 23:34 Dose: 100 mls/hr Vancomycin IV Pharmacy to Dose (1 ea/ Sodium Chloride) 500 mls @ 250 mls/hr IV X1 PRN; Protocol PRN Reason: Rx to Dose Vancomycin HCl 1,250 mg/ (Sodium Chloride) 275 mls @ 167 mls/hr IV Q24H JOSEFINA Sodium Chloride () 1,000 mls @ 75 mls/hr IV .[id number] JOSEFINA Last Admin: 04/13/18 06:52 Dose: 75 mls/hr Influenza Virus Vaccine Quadrival (Fluarix/Fluzone) 0.5 ml IM .ONCE ONE Stop: 04/13/18 10:01 Methylprednisolone (Solu-Medrol) 40 mg IV Q8 JOSEFINA Nitroglycerin (Nitrostat) 0.4 mg SUBLINGUAL Q5M PRN PRN Reason: CHEST PAIN Sodium Chloride () 5 - 30 ml IV UD PRN PRN Reason: SALINE FLUSH Last Admin: 04/13/18 04:07 Dose: 10 ml Medical Necessity - Tobacco Use Smoking Status: Current every day smoker Assessment/Plan All Active Problems CAD (coronary artery disease) (Acute) Chest pain (Acute) Abdominal distention (Acute) Shortness of breath (Acute) The patient is a 62 year old male patient with a significant past medical history of coronary artery disease with previous myocardial infarction and four vessel CABG in 2004, nicotine dependence of smoking history since age of 9, was admitted with shortness of breath. He has had distention of his abdomen and difficulty eating more than one meal a day for the past year. Last evening this became worse and he has become progressively short of breath. He never followed up after his CABG for routine management and has continued smoking. He does not want pain medications but does admit that he has chest pain, agreed for nitroglycerin but refused opioid. In ED, patient became progressively short of breath leading to intubation and admission in ICU EKG showed normal sinus rhythm at 93 bpm with intraventricular conduction delay. 1. Acute hypoxic respiratory failure secondary to heart failure from non-STEMI: Currently patient is intubated secondary to heart failure, most likely acute on chronic. Vent management as per wine cellar stock clerk. Hypoxia worsened. Vent setting was increased to keep pulse ox 90% 2. Non-STEMI complicating acute on chronic heart failure with history of coronary artery status post CABG in 2004: Seen by wire technician. On aspirin, Plavix, heparin drip. Currently, blood pressure is on lower side. Scheduled for cardiac cath today. As he recovers, will need beta-anup and RADHA inhibitor if his blood pressure can tolerate. 3. Bilateral lower lobes probably aspiration pneumonia, present on admission with clinical and chest x-ray findings of COPD: chest x-ray shows right lower lobe infiltrate with improvement in the left side. Patient was started on IV antibiotics. On vancomycin and Zosyn. Gram stain of sputum culture shows 2+ gram-positive cocci. Blood culture and urine culture are pending. 4 Small and large bowel ileus: On abdominal x-ray diffuse ileus pattern was noted with nonspecific gas pattern. No definitive evidence for small bowel obstruction. Patient has OG tube 5. Other comorbid include obesity grade 1, nicotine dependence more than 40 pack years of smoking, hypertension: Laboratory Results Microbiology Past 72 Hours 04/12/18 13:25 Sputum, Induced/Lukens Gram Stain - Final Laboratory Results 04/12/18 17:30: Troponin I 61.300 H* 04/12/18 21:10: Urine Color Itzel, Urine Clarity Cloudy, Urine pH 6.0, Ur Specific [place] 1.020, Urine Protein 30 H, Urine Glucose (UA) Normal, Urine Ketones 5 H, Urine Occult Blood 250 H, Urine Nitrite Negative, Urine Bilirubin 1 H, Urine Urobilinogen 1 H, Ur Leukocyte Esterase 500 H, Urine RBC 10-25 SEEN, Urine WBC 25-50 SEEN, Ur Squamous Epith Cells 0-5 SEEN, Ur Transition Epith Cell 0-5 SEEN, Urine Bacteria 1+, Hyaline Casts 50-100 SEEN, Urine Mucus 0 SEEN 04/12/18 23:30: Troponin I 72.100 H* 04/13/18 04:00: WBC 21.1 H, RBC 5.14, Hgb 12.2 L, Hct 40.0, MCV 77.8 L, MCH 23.7 L, MCHC 30.5 L, RDW 17.1 H, RDW Differential 48.5 H, Plt Count 291, MPV 9.4, Immature Gran % (Auto) 0.200, Neut % (Auto) 87.8 H, Lymph % (Auto) 5.2 L, [place] % (Auto) 6.6, Eos % (Auto) 0.0, Baso % (Auto) 0.2, Absolute Neuts (auto) 18.5 H, Absolute Lymphs (auto) 1.10, Total Counted Not Reportable 04/13/18 04:00: Sodium 136, Potassium 5.4 H, Chloride 104, Carbon Dioxide 21.0, Anion Gap 11, BUN 20 H, Creatinine 1.87 H, Estim Creat Clear Calc 36.96, Est GFR (MDRD) Af Amer 47 L, Est GFR (MDRD) Non-Af 39 L, BUN/Creatinine Ratio 10.7, Glucose 140 H, Calcium 8.3 L, Magnesium 2.3, Troponin I 81.200 H* 04/13/18 04:00: APTT 34.9 04/13/18 06:40: MRSA (PCR) Pending 04/12/18 06:20: Troponin I 39.900 H* Clinical Impression(s) from Imaging Studies Acute Abdomen Series 04/11/18 18:10 IMPRESSION: Nonspecific ileus. Other findings as above
[2018-04-13] MEDS: Chlorhexidine 15 ML PO (07:43)
[2018-04-13 08:14] LABS: M R Staph aureus DNA By PCR Negative (Negative); Probe Check PASS; Specimen Processing Control PASS
--- NOTE | 2018-04-13 09:31 | PCM.PN.CARD ---
Subjectve: The patient remains mechanically intubated and ventilated. His sedation has been decreased. He does open his eyes and appeared to respond to verbal communication. His complex medical condition has been explained to him. Objective: Vital Signs Temp Pulse Resp BP Pulse Ox 99.6 F H 74 12 101/47 L 96 04/13/18 08:00 04/13/18 08:00 04/13/18 08:00 04/13/18 08:00 04/13/18 08:00 Oxygen Delivery Method Mechanical Ventilator Weight: 193 lb 12.581 oz Body Mass Index (BMI) 30.9 Intake and Output for Last 24 Hours 04/11/18 04/12/18 04/13/18 23:59 23:59 23:59 Intake Total 2513.3 / 2513.3 742.1 / 742.1 Output Total 640 / 640 30 / Balance 1873.3 / 1873.3 712.1 / 712.1 General: Awake, Cooperative HEENT: Atraumatic, Normocephalic, PERRL, EOMI Neck: No JVD Lungs: Rhonchi - Scattered Cardiovascular: Regular Rhythm, Premature Ectopic Beats, Normal S1, Normal S2 Abdomen: Bowel Sounds Present, Soft Extremities: No edema Neurological: No Focal Motor or Sensory Deficit 04/12/18 10:15: APTT 46.2 H 04/12/18 17:30: APTT 55.8 H 04/12/18 17:30: Troponin I 61.300 H* 04/12/18 21:10: Urine Color Itzel, Urine Clarity Cloudy, Urine pH 6.0, Ur Specific [place] 1.020, Urine Protein 30 H, Urine Glucose (UA) Normal, Urine Ketones 5 H, Urine Occult Blood 250 H, Urine Nitrite Negative, Urine Bilirubin 1 H, Urine Urobilinogen 1 H, Ur Leukocyte Esterase 500 H, Urine RBC 10-25 SEEN, Urine WBC 25-50 SEEN 04/12/18 23:30: APTT 210.8 H* 04/12/18 23:30: Troponin I 72.100 H* 04/13/18 04:00: WBC 21.1 H, RBC 5.14, Hgb 12.2 L, Hct 40.0, MCV 77.8 L, MCH 23.7 L, MCHC 30.5 L, RDW 17.1 H, RDW Differential 48.5 H, Plt Count 291, MPV 9.4, Immature Gran % (Auto) 0.200, Neut % (Auto) 87.8 H, Lymph % (Auto) 5.2 L, [place] % (Auto) 6.6, Eos % (Auto) 0.0, Baso % (Auto) 0.2, Absolute Neuts (auto) 18.5 H, Total Counted Not Reportable 04/13/18 04:00: Sodium 136, Potassium 5.4 H, Chloride 104, Carbon Dioxide 21.0, Anion Gap 11, BUN 20 H, Creatinine 1.87 H, Est GFR (MDRD) Af Amer 47 L, Est GFR (MDRD) Non-Af 39 L, BUN/Creatinine Ratio 10.7, Glucose 140 H, Calcium 8.3 L, Magnesium 2.3, Troponin I 81.200 H* 04/13/18 04:00: APTT 34.9 Rhythm: Sinus rhythm; PVCs EKG: Sinus rhythm; nonspecific IVCD CXR: Preliminary evaluation: Compared to the previous chest x-ray there appears to be a decrease in the previously noted pulmonary vascularity, however, there appears to be concern of a right sided infiltrate. Please see official report Medical Necessity - Tobacco Use Smoking Status: Current every day smoker Assessment/Plan 1. Non-ST segment elevation PR The patient does have a non-ST segment elevation PR based upon a combination of his presenting symptoms, his troponin I level changes, and his ECG changes. He has also undergone additional noninvasive evaluation with a transthoracic echocardiogram but is demonstrated a severe segmental left ventricular systolic dysfunction/severely decreased LVEF compatible with an underlying ischemic mediated cardiomyopathy. At the present time he will continue to be monitored. His troponin I levels have continued to increase. He would continue medical management. This will include antiplatelet therapy with aspirin and clopidogrel/Plavix. Ideally would include other agents as needed and tolerated such as nitrates, beta-blockers, afterload reducing agents and lipid-lowering agents. However, based upon his clinical presentation/vital signs all these agents may not be able to be tolerated at one time. He will also need to be considered for reevaluation in the cardiac catheterization laboratory to reassess his coronary and graft anatomy for the need for additional revascularization therapy. This procedure and risks have been discussed with the patient's spouse who is agreeable to this approach. 2. CAD status post CABG The patient does have a history of CAD as noted above. He has undergone a previous evaluation and care as noted above. He has not had cardiovascular follow-up since his post CABG follow-up. He reportedly has discontinued his cardiovascular medications other than aspirin therapy. He now presents with the aforementioned clinical course and objective findings. He will continue to be monitored, continue medical therapy as tolerated, and undergo additional cardiovascular evaluation as deemed appropriate. 3. Ischemic mediated cardiomyopathy The patient does appear to have a significantly diminished LV systolic function/LVEF. The concern is this is related to progressive CAD and/or graft vessel disease. The patient will need to continue medical management. He will need continued noninvasive and invasive evaluation is scribed above. 4. Congestive heart failure: Systolic: Acute The patient presents with findings compatible with acute systolic mediated CHF based upon his clinical course and his objective findings including his chest x-ray. At the present time, based on concerns of his respiratory status, he was mechanically intubated/ventilated. The will continue combined cardiopulmonary evaluation and care. From a cardiovascular standpoint he will be treated medically. 5. Atrial septal defect status post closure The patient does have a history of an underlying atrial septal defect. Per his surgical note it was closed. 6. Nonsustained wide complex tachycardia He has demonstrated episodes of nonsustained wide complex tachycardia. This can be turning for nonsustained ventricular tachycardia. This may be secondary to his underlying CAD process and diminished LV systolic function. His cardiac rate and rhythm are being monitored. He is on antiarrhythmic therapy with IV amiodarone at this time. 7. Abdominal discomfort The patient has undergone evaluation as an outpatient for abdominal discomfort. His spouse states he underwent EGD which demonstrated a hiatal hernia. It is unclear whether his abdominal discomfort is related to his cardiovascular disease condition or a noncardiac condition including concerns of possible peripheral arterial occlusive disease leading to mesenteric ischemia, etc. He will need to be monitored for any such concerns. 8. Fever The patient has manifested a fever. His WBC has increased. His chest x-ray suggested a right sided infiltrate. He is now on IV antibiotics. Overall, the patient's case has been discussed at length with the patient's spouse yesterday and earlier this day as well as with Dr. Mitchell. The consensus at this time is to proceed with further cardiac evaluation with diagnostic cardiac catheterization in an attempt to assist with the ongoing diagnosis and care of the patient. Also, Dr. Mitchell has stated that there does not appear to be a contraindication to proceeding with coronary artery percutaneous intervention if needed. This note was generated with [employer] dictation software. It may contain incorrect words, spelling, and punctuation that were not noted in checking the note before signing.
--- NOTE | 2018-04-13 09:37 | PN.CARD_ITS ---
Subjectve: The patient remains mechanically intubated and ventilated. His sedation has been decreased. He does open his eyes and appeared to respond to verbal communication. His complex medical condition has been explained to him. Objective: Vital Signs Temp Pulse Resp BP Pulse Ox 99.6 F H 74 12 101/47 L 96 04/13/18 08:00 04/13/18 08:00 04/13/18 08:00 04/13/18 08:00 04/13/18 08:00 Oxygen Delivery Method Mechanical Ventilator Weight: 193 lb 12.581 oz Body Mass Index (BMI) 30.9 Intake and Output for Last 24 Hours 04/11/18 04/12/18 04/13/18 23:59 23:59 23:59 Intake Total 2513.3 / 2513.3 742.1 / 742.1 Output Total 640 / 640 30 / Balance 1873.3 / 1873.3 712.1 / 712.1 General: Awake, Cooperative HEENT: Atraumatic, Normocephalic, PERRL, EOMI Neck: No JVD Lungs: Rhonchi - Scattered Cardiovascular: Regular Rhythm, Premature Ectopic Beats, Normal S1, Normal S2 Abdomen: Bowel Sounds Present, Soft Extremities: No edema Neurological: No Focal Motor or Sensory Deficit 04/12/18 10:15: APTT 46.2 H 04/12/18 17:30: APTT 55.8 H 04/12/18 17:30: Troponin I 61.300 H* 04/12/18 21:10: Urine Color Itzel, Urine Clarity Cloudy, Urine pH 6.0, Ur Specific [place] 1.020, Urine Protein 30 H, Urine Glucose (UA) Normal, Urine Ketones 5 H, Urine Occult Blood 250 H, Urine Nitrite Negative, Urine Bilirubin 1 H, Urine Urobilinogen 1 H, Ur Leukocyte Esterase 500 H, Urine RBC 10-25 SEEN, Urine WBC 25-50 SEEN 04/12/18 23:30: APTT 210.8 H* 04/12/18 23:30: Troponin I 72.100 H* 04/13/18 04:00: WBC 21.1 H, RBC 5.14, Hgb 12.2 L, Hct 40.0, MCV 77.8 L, MCH 23.7 L, MCHC 30.5 L, RDW 17.1 H, RDW Differential 48.5 H, Plt Count 291, MPV 9.4, Immature Gran % (Auto) 0.200, Neut % (Auto) 87.8 H, Lymph % (Auto) 5.2 L, [place] % (Auto) 6.6, Eos % (Auto) 0.0, Baso % (Auto) 0.2, Absolute Neuts (auto) 18.5 H, Total Counted Not Reportable 04/13/18 04:00: Sodium 136, Potassium 5.4 H, Chloride 104, Carbon Dioxide 21.0, Anion Gap 11, BUN 20 H, Creatinine 1.87 H, Est GFR (MDRD) Af Amer 47 L, Est GFR (MDRD) Non-Af 39 L, BUN/Creatinine Ratio 10.7, Glucose 140 H, Calcium 8.3 L, Magnesium 2.3, Troponin I 81.200 H* 04/13/18 04:00: APTT 34.9 Rhythm: Sinus rhythm; PVCs EKG: Sinus rhythm; nonspecific IVCD CXR: Preliminary evaluation: Compared to the previous chest x-ray there appears to be a decrease in the previously noted pulmonary vascularity, however, there appears to be concern of a right sided infiltrate. Please see official report Medical Necessity - Tobacco Use Smoking Status: Current every day smoker Assessment/Plan 1. Non-ST segment elevation MT The patient does have a non-ST segment elevation MT based upon a combination of his presenting symptoms, his troponin I level changes, and his ECG changes. He has also undergone additional noninvasive evaluation with a transthoracic echocardiogram but is demonstrated a severe segmental left ventricular systolic dysfunction/severely decreased LVEF compatible with an underlying ischemic mediated cardiomyopathy. At the present time he will continue to be monitored. His troponin I levels have continued to increase. He would continue medical management. This will include antiplatelet therapy with aspirin and clopidogrel/Plavix. Ideally would include other agents as needed and tolerated such as nitrates, beta-blockers, afterload reducing agents and lipid-lowering agents. However, based upon his clinical presentation/vital signs all these agents may not be able to be tolerated at one time. He will also need to be considered for reevaluation in the cardiac catheterization laboratory to reassess his coronary and graft anatomy for the need for additional revascularization therapy. This procedure and risks have been discussed with the patient's spouse who is agreeable to this approach. 2. CAD status post CABG The patient does have a history of CAD as noted above. He has undergone a previous evaluation and care as noted above. He has not had cardiovascular follow-up since his post CABG follow-up. He reportedly has discontinued his cardiovascular medications other than aspirin therapy. He now presents with the aforementioned clinical course and objective findings. He will continue to be monitored, continue medical therapy as tolerated, and undergo additional cardiovascular evaluation as deemed appropriate. 3. Ischemic mediated cardiomyopathy The patient does appear to have a significantly diminished LV systolic function/LVEF. The concern is this is related to progressive CAD and/or graft vessel disease. The patient will need to continue medical management. He will need continued noninvasive and invasive evaluation is scribed above. 4. Congestive heart failure: Systolic: Acute The patient presents with findings compatible with acute systolic mediated CHF b ased upon his clinical course and his objective findings including his chest x- ray. At the present time, based on concerns of his respiratory status, he was mechanically intubated/ventilated. The will continue combined cardiopulmonary evaluation and care. From a cardiovascular standpoint he will be treated medically. 5. Atrial septal defect status post closure The patient does have a history of an underlying atrial septal defect. Per his surgical note it was closed. 6. Nonsustained wide complex tachycardia He has demonstrated episodes of nonsustained wide complex tachycardia. This can be turning for nonsustained ventricular tachycardia. This may be secondary to his underlying CAD process and diminished LV systolic function. His cardiac rate and rhythm are being monitored. He is on antiarrhythmic therapy with IV amiodarone at this time. 7. Abdominal discomfort The patient has undergone evaluation as an outpatient for abdominal discomfort. His spouse states he underwent EGD which demonstrated a hiatal hernia. It is unclear whether his abdominal discomfort is related to his cardiovascular disease condition or a noncardiac condition including concerns of possible per ipheral arterial occlusive disease leading to mesenteric ischemia, etc. He will need to be monitored for any such concerns. 8. Fever The patient has manifested a fever. His WBC has increased. His chest x-ray suggested a right sided infiltrate. He is now on IV antibiotics. Overall, the patient's case has been discussed at length with the patient's spouse yesterday and earlier this day as well as with Dr. Mitchell. The consensus at this time is to proceed with further cardiac evaluation with diagnostic cardiac catheterization in an attempt to assist with the ongoing diagnosis and care of the patient. Also, Dr. Mitchell has stated that there does not appear to be a contraindication to proceeding with coronary artery percutaneous intervention if needed. This note was generated with [employer] dictation software. It may contain incorrect words, spelling, and punctuation that were not noted in checking the note before signing.
[2018-04-13] MEDS: Propofol 10MG/Ml 1,000 MG/100 ML Bottle 2.595 MG CONT INF (12:25)
--- NOTE | 2018-04-13 12:26 | CL.D_ITS ---
Patient Name: PERLA MUNIZ Study Date: 04/13/2018 Performing: Olman Chaudhry MD Ht: 66 inches 168 cm : 1955 Wt: 194.3 lbs 88 kg Age: 62 Gender: male BSA: 1.98 PROCEDURE(S) PERFORMED [id number]/LHC/COR/LV/CABG [id number] INSERTION CLINICAL PROFILE AND INDICATIONS Indications: Valvular Disease, Cardiac Arrythmia, Cardiomyopathy Heart Failure: NYHA Class: 3, Newly Diagnosed: Yes, Heart Failure Type: Systolic Stress/Imaging Stress/Image Study Performed: No Angina Classification Anginal Classification w/in 2 Weeks: No symptoms CAD Presentations: Non-STEMI. CONCLUSIONS Right heart pressures - severely elevated The patient has pulmonary hypertension which is severe. Intracardiac shunting: Calculated Qp/Qs ratio: 0.8 (non hemodynamically signifiant) Elevated Left Ventricular End Diastolic Pressure Segmented LV systolic dysfunction- Severe LVEF: by LV gram 10 % [place] Multivessel CAD JONES to LAD: small, atretic, nonfunctional SVG to RCA: patent with distal pre anastomosis 25% stenosis with sequential portion to the RPL being absent Right to Left collateral flow Mitral Valve Insufficiency Severe PAOD: right iliac artery system with severe atherosclerotic disease PAOD: left iliac artery system with mild to moderate atherosclerotic disease RECOMMENDATIONS Risk factor modification Medical therapy IABP DESCRIPTION OF PROCEDURE The patient arrived to the procedure lab. The risks and benefits of the procedure as well as a full d escription of our services here and current unavailability of surgical backup were fully explained to the patient and/or their significant other prior to the catheterization. The Timeout was completed, verifying the correct patient and procedure. The patient's procedural site was prepped and draped in the usual fashion. Local anesthetic was given subcutaneously to right groin region with Lidocaine 2%. Using a modified Seldinger technique, arterial access was obtained via the right femoral artery, a 4 Fr sheath was inserted, arterial access was obtained via the left femoral artery, an 8Fr sheath was i nserted. Venous access was obtained via the right femoral vein, a 7Fr sheath was inserted. A 7Fr ther mal dilution catheter was inserted and right heart pressures were recorded, it was then advanced to P A position for cardiac outputs. Thermal dilution cardiac outputs were then recorded. O2 saturations w ere then obtained. Left Ventriculography was performed in AUGUSTINE projection using a 4 Fr. Pigtail cathet er. LV to AO pullback pressures were then recorded. Left Coronary Artery selective angiography was pe rformed in multiple views using a 4 Fr. JL4 catheter. Right Coronary Artery selective angiography was then performed in multiple views using a 4 Fr. JR4 catheter. Left internal mammary artery graft to t he LAD selective angiography was performed in multiple views using a 4 Fr. JR4 catheter. Saphenous Ve in graft to the RPDA and post lateral branch of the RCA selective angiography was performed in multi ple views using a 4 Fr. RCB catheter. The Thermal dilution catheter was then removed. Left iliac neema ctive angiography was then performed in single view using a 4fr IM Catheter.Arrow 40cc 7.5F UltraFlex IABP - Qty: 1 Each Part #: [id number], A 40cc IABP catheter was inserted into the left femoral artery, IA BP settings: 1:1, The IABP catheter and sheath were secured in place, IABP Augumented BP: 100 mmHgThe arterial sheath was sutured in place and capped. Right Groin.. The venous sheath was then sutured in place and capped. Right Groin. CORONARY ANGIOGRAPHY DOMINANCE: Right Dominant LEFT HEART ASSESSMENT Left Ventricular Ejection Fraction: by LV Gram 10 % Anterior Hypokinesis - Severe. Apical Hypokinesis - Severe. Inferior Basal Akinesis. Inferior Mid Hyp okinesis - Severe Elevated Left Ventricular End Diastolic Pressure LVEDP: 31 mmHg RIGHT HEART ASSESSMENT Thermal CO: 2.8 Thermal CI: 1.41 Apoorva CO: 3.78 Apoorva CI: 1.91 PW: 38/46 38 PA: 80/44 56 RV: 83/15 19 RA: 25/24 21 PVR: 514 SVR: 1486 Right Heart pressures - elevated Pulmonary Hypertension Severe Intracardiac shunting: Calculated Qp/Qs ratio: 0.8 (non hemodynamically significant) LEFT MAIN: Distal: 95 % Stenosis LEFT ANTERIOR DECENDING ARTERY: OSTIAL LAD: 75 % Stenosis PROX LAD: Mild luminal irregularities MID LAD: Mild luminal irregularities, S/P DX2: small caliber vessel filling late and partially DIAGONAL 1: Proximal - Mild luminal irregularities CIRCUMFLEX ARTERY: Small caliber vessel OM 1: Proximal - subtotal occlusion (small caliber vessel) RIGHT CORONARY ARTERY: PROX RCA: Long: Diffuse: Irregular: 85 % Stenosis MID RCA: is occluded GRAFTS: JONES graft to the Mid LAD small, atretic, non functional vessel Saphenous Vein graft to the RCA is patent with distal / pre anastomosis 25% stenosis with a sequentia l portion to the RPL branch absent COLLATERAL FLOW: Collateral flow from Right to Left VALVE FINDINGS: Normal Aortic Valve function Mitral Valve Insufficiency - Grade 4 AORTIC ROOT: Angiographically normal PERIPHERAL FINDINGS: Right Iliac Artery System: severe diffuse atherosclerotic disease Left Common Iliac Artery mild to moderate diffuse atherosclerotic disease COMPLICATIONS No Complications PROCEDURE MEDICATIONS Oxygen: via ventilator. See Resp Record for Settings Heparin 6000 unit(s) IV 04/13/2018 11:18:21 Heparin 25,000u / 250ml D5W @ 1200 u/hr IV started 04/13/2018 11:18:39 SUMMARY OF HEMODYNAMIC DATA Time AIR REST ECG 09:43:34 RA 25/24 (21) SV 09:55:35 RV 83/15, 19 09:55:53 PA 80/44 (56) PA 09:57:37 PW 38/46 (38) PV 09:57:51 LV 89/21, 32 10:05:59 PW 37/40 (37) 10:05:59 LV 89/21, 32 10:06:06 PW 35/39 (37) 10:06:06 LV 90/21, 31 10:07:39 PW 36/43 (37) 10:07:39 LV 91/24, 35 10:08:01 LVp 95/29, 35 10:08:06 AOp 100/61 (75) 10:08:11 PA 85/43 (57) 10:08:39 RV 81/15, 22 10:08:56 RA 26/25 (22) 10:09:05 AO 92/61 (73) SA 10:11:49 Type SV CO (l/m) CI (l/m/ HR Time AIR REST Thermal 36.80 2.80 1.41 76 09:43:34 Apoorva 49.70 3.78 1.91 76 09:43:34 Label % O2 Pres/Loc Time AIR REST PA 50 PA 10:57:48 SVC 59 10:57:57 IVC 50 SV 10:58:04 AO 92 PV 10:58:13 Signed By Olman Chaudhry MD On 04/13/2018 12:25:48 Olman Chaudhry MD
[2018-04-13 12:51] LABS: Blood Gas Specimen Type VEN; VBG BASE EXCESS -7 mmol/L (-1.0-3.5); VBG Bicarbonate 21 mmol/L (22-26); VBG Oxygen Content 22 mmol/L (23-33); VBG PO2 33 mmHg (25-40); VBG SO2 50 % (50-70); VBG pCO2 53.9 mmHg (41-51)
[2018-04-13 12:51] LABS: Blood Gas Specimen Type VEN; VBG BASE EXCESS -8 mmol/L (-1.0-3.5); VBG Bicarbonate 21 mmol/L (22-26); VBG Oxygen Content 22 mmol/L (23-33); VBG PO2 40 mmHg (25-40); VBG SO2 61 % (50-70); VBG pCO2 54.8 mmHg (41-51); VBG pH 7.19 (7.32-7.42)
[2018-04-13 12:51] LABS: Blood Gas Specimen Type VEN; VBG BASE EXCESS -7 mmol/L (-1.0-3.5); VBG Bicarbonate 22 mmol/L (22-26); VBG Oxygen Content 24 mmol/L (23-33); VBG PO2 32 mmHg (25-40); VBG SO2 45 % (50-70); VBG pCO2 59.8 mmHg (41-51); VBG pH 7.17 (7.32-7.42)
[2018-04-13 12:51] LABS: Blood Gas Specimen Type VEN; VBG BASE EXCESS -7 mmol/L (-1.0-3.5); VBG Bicarbonate 21 mmol/L (22-26); VBG Oxygen Content 22 mmol/L (23-33); VBG PO2 33 mmHg (25-40); VBG SO2 50 % (50-70); VBG pCO2 55.1 mmHg (41-51); VBG pH 7.19 (7.32-7.42)
[2018-04-13 12:51] LABS: Base Excess -9 mmol/L (-2 to +2); Bicarbonate 19.3 mmol/L (22-26); Blood Gas Specimen Type ART; PO2 77 mmHG (75-100); SO2 92 % (95-99); Total Carbon Dioxide 21 mmol/L; pCO2 47.8 mmHg (35-45); pH 7.21 (7.35-7.45)
[2018-04-13 12:51] LABS: Blood Gas Specimen Type VEN; VBG BASE EXCESS -8 mmol/L (-1.0-3.5); VBG Bicarbonate 20 mmol/L (22-26); VBG Oxygen Content 22 mmol/L (23-33); VBG PO2 39 mmHg (25-40); VBG SO2 59 % (50-70); VBG pCO2 54.3 mmHg (41-51); VBG pH 7.18 (7.32-7.42)
--- NOTE | 2018-04-13 13:09 | DS.PCM_ITS ---
Discharge Date and Diagnosis Date of Admission: 04/11/18 Date of Discharge: 04/13/18 - Primary Discharge Diagnosis Active and Suspected Problems CAD (coronary artery disease) (Acute) Chest pain (Acute) Abdominal distention (Acute) Shortness of breath (Acute) Acute hypoxic respiratory failure secondary to heart failure from non-STEMI: 2. 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 3. Bilateral lower lobes probably aspiration pneumonia, present on admission with clinical and chest x-ray findings of COPD: - Secondary Discharge Diagnosis Chronic Problems Smoking greater than 40 pack years (Chronic) Hospital Course and Treatment Imaging Results: 04/13/18 06:00 CXR [Chest 1 View (Portable)] [RAD] Urgent 04/14/18 05:55 Chest 1 View (Portable) [RAD] AM (NON MEDS) Summary of Care Provided: [] The patient is a 62 year old male patient with a significant past medical history of coronary artery disease with previous myocardial infarction and four vessel CABG in 2004, nicotine dependence of smoking history since age of 9, was admitted with shortness of breath. He has had distention of his abdomen and difficulty eating more than one meal a day for the past year. Last evening this became worse and he has become progressively short of breath. He never followed up after his CABG for routine management and has continued smoking. He does not want pain medications but does admit that he has chest pain, agreed for nitroglycerin but refused opioid. In ED, patient became progressively short of breath leading to intubation and admission in ICU EKG showed normal sinus rhythm at 93 bpm with intraventricular conduction delay. 1. Acute hypoxic respiratory failure secondary to heart failure from non-STEMI: Currently patient is intubated secondary to heart failure, most likely acute on chronic. Vent management as per electric stop installer. Hypoxia worsened. Vent setting was increased to keep pulse ox 90% 2. 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 On aspirin, Plavix, heparin drip. Currently, blood pressure is on lower side. Scheduled for cardiac cath today. As he recovers, will need beta-anup and RADHA inhibitor if his blood pressure can tolerate. Echo was done and reported as EF 15% with moderately dilated LV. Severe segmental systolic dysfunction. A stage III diastolic dysfunction. Mid anteroseptal apex lateral aspects and mid posterior akinetic. Patient had cardiac catheterization and was found severe LV segmental systolic dysfunction, EF 10% by LV gram. [place] multivessel coronary artery disease. Left main distal 95%. Ostial LAD 75%. Proximal LAD mild. Circumflex artery small caliber vessel. Proximal OM1 subtotal occlusion. Proximal RCA long diffuse irregular 85% stenosis. JONES to LAD small, atretic and nonfunctional. SVG to RCA patent with distal preanastomosis 25% stenosis with sequential portion to RPL being absent. [id number] collateral flow. Severe MR. Right iliac artery system with severe atherosclerotic disease and left iliac artery system with mild to moderate atherosclerotic disease. With severe LV dysfunction with EF 10%, IABP was inserted. Tertiary care center evaluation for high risk coronary artery revascularization therapy and additional valvular evaluation care was recommended. The transfer process to [facility], [facility] was initiated by engineer process and patient was life flighted to the ICU on IABP in place 1:1. Valvular heart disease: Moderate 2+ MR on 2D echo. 3. Bilateral lower lobes probably aspiration pneumonia, present on admission with clinical and chest x-ray findings of COPD: chest x-ray shows right lower lobe infiltrate with improvement in the left side. Patient was started on IV antibiotics. On vancomycin and Zosyn. Gram stain of sputum culture shows 2+ gram-positive cocci. Blood culture and urine culture are pending. 4 Small and large bowel ileus: On abdominal x-ray diffuse ileus pattern was noted with nonspecific gas pattern. No definitive evidence for small bowel obstruction. Patient has OG tube 5. Other comorbid include obesity grade 1, nicotine dependence more than 40 pack years of smoking, hypertension: Objective: General: - Intubated and on ventilator. On IV sedation HEENT: Atraumatic, PERRLA, EOMI, Normocephalic Oral: - - PT and OT to Neck: Negative Carotid Bruits Lungs: Diminished, Rhonchi, - On vent support, FiO2 55% and high PEEP 12 Cardiovascular: Regular rate, Regular Rhythm, Normal S1, Normal S2, No murmurs Abdomen: Bowel Sounds Present, Soft, Non Tender, Non-Distended Extremities: No clubbing, No cyanosis, No edema. IABP device through the left femoral site Skin: No rashes, No breakdown Musculoskeletal: No Tenderness to Palpation of Joints or Extremities, Arthritic Changes Neurological: - - On sedative - Physical Exam Vital Signs Temp Pulse Resp BP Pulse Ox 99.7 F H 70 12 77/56 L 94 04/13/18 09:00 04/13/18 11:55 04/13/18 11:24 04/13/18 12:00 04/13/18 11:55 Oxygen Delivery Method Mechanical Ventilator Weight: 193 lb 12.581 oz Body Mass Index (BMI) 30.9 Intake and Output for Last 24 Hours 04/11/18 04/12/18 04/13/18 23:59 23:59 23:59 Intake Total 2513.3 / 2513.3 955.1 / 955.1 Output Total 640 / 640 155 / 155 Balance 1873.3 / 1873.3 800.1 / 800.1 Microbiology Past 72 Hours 04/12/18 13:25 Gram Stain - Final Sputum, Induced/[place] Laboratory Tests Past 24 Hrs 04/12/18 04/12/18 04/12/18 17:30 17:30 21:10 WBC RBC Hgb Hct MCV MCH MCHC RDW RDW Differential Plt Count MPV Immature Gran % (Auto) Neut % (Auto) Lymph % (Auto) [place] % (Auto) Eos % (Auto) Baso % (Auto) Absolute Neuts (auto) Absolute Lymphs (auto) Total Counted APTT 55.8 H Specimen Type pH Bicarbonate Actual POC Total CO2 Base Excess O2 Saturation ABG pCO2 ABG pO2 VBG pH VBG pO2 VBG O2 Sat (Calc) VBG O2 Content VBG Base Excess POC Mix VBG pCO2 Pt Tmp Sodium Potassium Chloride Carbon Dioxide Anion Gap BUN Creatinine Estim Creat Clear Calc Est GFR (MDRD) Af Amer Est GFR (MDRD) Non-Af BUN/Creatinine Ratio Glucose Calcium Magnesium Troponin I 61.300 H* Urine Color [place] Urine Clarity Cloudy Urine pH 6.0 Ur Specific [place] 1.020 Urine Protein 30 H Urine Glucose (UA) Normal Urine Ketones 5 H Urine Occult Blood 250 H Urine Nitrite Negative Urine Bilirubin 1 H Urine Urobilinogen 1 H Ur Leukocyte Esterase 500 H Urine RBC 10-25 SEEN Urine WBC 25-50 SEEN Ur Squamous Epith Cells 0-5 SEEN Ur Transition Epith Cell 0-5 SEEN Urine Bacteria 1+ Hyaline Casts 50-100 SEEN Urine Mucus 0 SEEN MRSA (PCR) 04/12/18 04/12/18 04/13/18 23:30 23:30 04:00 WBC 21.1 H RBC 5.14 Hgb 12.2 L Hct 40.0 MCV 77.8 L MCH 23.7 L MCHC 30.5 L RDW 17.1 H RDW Differential 48.5 H Plt Count 291 MPV 9.4 Immature Gran % (Auto) 0.200 Neut % (Auto) 87.8 H Lymph % (Auto) 5.2 L [place] % (Auto) 6.6 Eos % (Auto) 0.0 Baso % (Auto) 0.2 Absolute Neuts (auto) 18.5 H Absolute Lymphs (auto) 1.10 Total Counted Not Reportable APTT 210.8 H* Specimen Type pH Bicarbonate Actual POC Total CO2 Base Excess O2 Saturation ABG pCO2 ABG pO2 VBG pH VBG pO2 VBG O2 Sat (Calc) VBG O2 Content VBG Base Excess POC Mix VBG pCO2 Pt Tmp Sodium Potassium Chloride Carbon Dioxide Anion Gap BUN Creatinine Estim Creat Clear Calc Est GFR (MDRD) Af Amer Est GFR (MDRD) Non-Af BUN/Creatinine Ratio Glucose Calcium Magnesium Troponin I 72.100 H* Urine Color Urine Clarity Urine pH Ur Specific [place] Urine Protein Urine Glucose (UA) Urine Ketones Urine Occult Blood Urine Nitrite Urine Bilirubin Urine Urobilinogen Ur Leukocyte Esterase Urine RBC Urine WBC Ur Squamous Epith Cells Ur Transition Epith Cell Urine Bacteria Hyaline Casts Urine Mucus MRSA (PCR) 04/13/18 04/13/18 04/13/18 04:00 04:00 06:40 WBC RBC Hgb Hct MCV MCH MCHC RDW RDW Differential Plt Count MPV Immature Gran % (Auto) Neut % (Auto) Lymph % (Auto) [place] % (Auto) Eos % (Auto) Baso % (Auto) Absolute Neuts (auto) Absolute Lymphs (auto) Total Counted APTT 34.9 Specimen Type pH Bicarbonate Actual POC Total CO2 Base Excess O2 Saturation ABG pCO2 ABG pO2 VBG pH VBG pO2 VBG O2 Sat (Calc) VBG O2 Content VBG Base Excess POC Mix VBG pCO2 Pt Tmp Sodium 136 Potassium 5.4 H Chloride 104 Carbon Dioxide 21.0 Anion Gap 11 BUN 20 H Creatinine 1.87 H Estim Creat Clear Calc 36.96 Est GFR (MDRD) Af Amer 47 L Est GFR (MDRD) Non-Af 39 L BUN/Creatinine Ratio 10.7 Glucose 140 H Calcium 8.3 L Magnesium 2.3 Troponin I 81.200 H* Urine Color Urine Clarity Urine pH Ur Specific [place] Urine Protein Urine Glucose (UA) Urine Ketones Urine Occult Blood Urine Nitrite Urine Bilirubin Urine Urobilinogen Ur Leukocyte Esterase Urine RBC Urine WBC Ur Squamous Epith Cells Ur Transition Epith Cell Urine Bacteria Hyaline Casts Urine Mucus MRSA (PCR) Negative 04/13/18 04/13/18 04/13/18 09:53 09:57 10:00 WBC RBC Hgb Hct MCV MCH MCHC RDW RDW Differential Plt Count MPV Immature Gran % (Auto) Neut % (Auto) Lymph % (Auto) [place] % (Auto) Eos % (Auto) Baso % (Auto) Absolute Neuts (auto) Absolute Lymphs (auto) Total Counted APTT Specimen Type ART RAKESH RAKESH pH 7.21 L Bicarbonate Actual 19.3 L POC Total CO2 21 Base Excess -9 L O2 Saturation 92 L ABG pCO2 47.8 H ABG pO2 77 VBG pH 7.19 L* 7.19 L* VBG pO2 33 40 VBG O2 Sat (Calc) 50 61 VBG O2 Content 22 L 22 L VBG Base Excess -7 L -8 L POC Mix VBG pCO2 Pt Tmp 55.1 H 54.8 H Sodium Potassium Chloride Carbon Dioxide Anion Gap BUN Creatinine Estim Creat Clear Calc Est GFR (MDRD) Af Amer Est GFR (MDRD) Non-Af BUN/Creatinine Ratio Glucose Calcium Magnesium Troponin I Urine Color Urine Clarity Urine pH Ur Specific [place] Urine Protein Urine Glucose (UA) Urine Ketones Urine Occult Blood Urine Nitrite Urine Bilirubin Urine Urobilinogen Ur Leukocyte Esterase Urine RBC Urine WBC Ur Squamous Epith Cells Ur Transition Epith Cell Urine Bacteria Hyaline Casts Urine Mucus MRSA (PCR) 04/13/18 04/13/18 04/13/18 10:04 10:13 10:36 WBC RBC Hgb Hct MCV MCH MCHC RDW RDW Differential Plt Count MPV Immature Gran % (Auto) Neut % (Auto) Lymph % (Auto) [place] % (Auto) Eos % (Auto) Baso % (Auto) Absolute Neuts (auto) Absolute Lymphs (auto) Total Counted APTT Specimen Type RAKESH RAKESH RAKESH pH Bicarbonate Actual POC Total CO2 Base Excess O2 Saturation ABG pCO2 ABG pO2 VBG pH 7.20 L 7.17 L* 7.18 L* VBG pO2 33 32 39 VBG O2 Sat (Calc) 50 45 L 59 VBG O2 Content 22 L 24 22 L VBG Base Excess -7 L -7 L -8 L POC Mix VBG pCO2 Pt Tmp 53.9 H 59.8 H 54.3 H Sodium Potassium Chloride Carbon Dioxide Anion Gap BUN Creatinine Estim Creat Clear Calc Est GFR (MDRD) Af Amer Est GFR (MDRD) Non-Af BUN/Creatinine Ratio Glucose Calcium Magnesium Troponin I Urine Color Urine Clarity Urine pH Ur Specific [place] Urine Protein Urine Glucose (UA) Urine Ketones Urine Occult Blood Urine Nitrite Urine Bilirubin Urine Urobilinogen Ur Leukocyte Esterase Urine RBC Urine WBC Ur Squamous Epith Cells Ur Transition Epith Cell Urine Bacteria Hyaline Casts Urine Mucus MRSA (PCR) POC Glucose 04/12/18 23:12 POC Glucose 144 H Home Medications: Medications to take at Discharge Aspirin [Aspirin, Baby] 81 mg PO DAILY 04/11/18 Budesonide/Formoterol 160/4.5 [Symbicort 160/4.5 Mcg Inhaler (SP)] 2 puff INHALATION BID 04/11/18 Omeprazole 40 mg PO DAILY 04/11/18 Simethicone [Gas Relief] 125 mg PO Q4H 04/11/18 Primary Care Physician: Willi Juares MD [Primary Care Provider] - Medical Necessity - Tobacco Use Smoking Status: Current every day smoker Meaningful Use Info Meaningful Use Diagnoses (Choose all that apply): None applicable Code Visit Inpatient E&M: 03224 [facility]
[2018-04-13] MEDS: HEPARIN/D5w 25,000 UNITS 25,000 UNITS/250 ML IV.SOLN. 10 UNITS IV (13:51)
== END 2018-04-13 13:33 | disposition short-term general hospital (02) | DRG 270 ==
LOC: ED 18:38 → PCU 21:01 → ICU 21:27
PROVIDERS: Hospitalist; Internal Medicine Cardiovascular Disease; Internal Medicine Critical Care Medicine; Admitting Provider Family Medicine; Emergency Provider Emergency Medicine; Family Provider Family Medicine; PCP Family Medicine; Visit Provider Internal Medicine
DX: I21.4 Non-ST elevation (NSTEMI) myocardial infarction (principal); J96.01 Acute respiratory failure with hypoxia; J69.0 Pneumonitis due to inhalation of food and vomit; I50.43 Acute on chronic combined systolic (congestive) and diastolic (congestive) heart failure; K56.7 Ileus, unspecified; I11.0 Hypertensive heart disease with heart failure; Z79.82 Long term (current) use of aspirin; F17.210 Nicotine dependence, cigarettes, uncomplicated; Z95.1 Presence of aortocoronary bypass graft; I25.2 Old myocardial infarction; I25.10 Atherosclerotic heart disease of native coronary artery without angina pectoris; E66.9 Obesity, unspecified; Z68.30 Body mass index [BMI] 30.0-30.9, adult; I34.0 Nonrheumatic mitral (valve) insufficiency; J44.9 Chronic obstructive pulmonary disease, unspecified
CPT/HCPCS: 31500; 31720; 33967; 36600; 71045; 74022; 80048; 80053; 80061; 80076; 81001; 82550; 82803; 82962; 83690; 83735; 84478; 84484; 85025; 85027; 85610; 85730; 87040; 87070; 87077; 87086; 87205; 87641; 93005; 93306; 93461; 94002; 94003; 94640; 97802; 99251; 99282; J7030; J7040; J7050; Q9967; A4216; C1751; C1769; C1894; C8929; G0463; J0330; J1940